=== PATIENT | female | born 1945 | race Caucasian/White ===

== ENCOUNTER 2024-01-18 09:06 | Outpatient (REF) | payer MEDICARE, SELFPAY ==
[2024-01-18 09:20] LABS: Basophils Absolute Auto 0.02 K/uL (0.00-0.30); Basophils Percent Auto 0.3 % (0.0-3.0); Eosinophils Absolute Auto 0.05 K/uL (0.00-0.50); Eosinophils Percent Auto 0.8 % (0.0-7.0); Hematocrit 42.8 % (33.0-51.0); Hemoglobin* 13.2 gm/dL (12.0-16.0); Immature Granulocytes Abs Auto 0.01 K/uL (0.00-0.30); Immature Granulocytes Pct Auto 0.2 %; Lymphocytes Absolute Auto 2.25 K/uL (0.90-2.90); Lymphocytes Percent Auto 37.9 % (20-44); Mean Corpuscular HGB Conc 31 gm/dL (32-36); Mean Corpuscular Hemoglobin 26 pg (26-34); Mean Corpuscular Volume 84 fL (80-100); Monocytes Percent Auto 8.8 % (0.0-11.0); Neutrophils Absolute Auto 3.08 K/uL (1.7-7.0); Platelet Count* 170 K/uL (140-440); Red Blood Count 5.09 m/uL (4.00-5.20); White Blood Count* 5.93 K/uL (4.50-11.00)
[2024-01-18 09:21] LABS: Slide Review Reflex No
[2024-01-18 09:32] LABS: Chloride* 101 mmol/L (96-114); Potassium* 4.8 mmol/L (3.6-5.1); Sodium* 137 mmol/L (135-149)
[2024-01-18 09:34] LABS: Cholesterol* 225 mg/dL (90-199)
[2024-01-18 09:35] LABS: Anion Gap 8 mEq/L (7-15); Blood Urea Nitrogen* 13 mg/dL (7-30); Calcium* 9.2 mg/dL (8.4-10.6); Carbon Dioxide* 28 mmol/L (20-32); Creatinine* 0.8 mg/dL (0.5-1.5); Estimated Glomerular Filt Rate 76 ml/min; Glucose* 204 mg/dL (60-115); Triglycerides* 160 mg/dL (40-149)
[2024-01-18 09:36] LABS: HDL Cholesterol* 54 mg/dL (>=50); LDL Cholesterol Calculated 139 mg/dL (<100)
[2024-01-18 09:54] LABS: Hemoglobin A1C* 8.8 % (0-5.6)
== END 2024-01-18 09:07 | disposition home or self-care (01) ==
LOC: NPINS 09:06
PROVIDERS: PCP Nurse Practitioner Gerontology; Visit Provider Nurse Practitioner Gerontology
DX: Z79.4 Long term (current) use of insulin (principal)
CPT/HCPCS: 80048; 80061; 83036; 85025

== ENCOUNTER 2024-02-08 20:28 | Outpatient (REF) | payer MEDICARE, SELFPAY ==
[2024-02-09 12:14] LABS: C.Difficile Negative (Negative); CDIFFEPI 027 PRESUMPTIVE NEGATIVE (Negative)
== END 2024-02-08 20:29 | disposition home or self-care (01) ==
LOC: NPINS 20:28
PROVIDERS: PCP Nurse Practitioner Gerontology; Visit Provider Nurse Practitioner Gerontology
DX: R19.7 Diarrhea, unspecified (principal)
CPT/HCPCS: 87493

== ENCOUNTER 2024-02-29 12:06 | Outpatient (CLI) | payer MEDICARE, SELFPAY | END 2024-02-29 12:07 | disposition home or self-care (01) | PROVIDERS: PCP Nurse Practitioner Gerontology; Visit Provider Family Medicine | DX: M54.16 Radiculopathy, lumbar region (principal); M51.369 Other intervertebral disc degeneration, lumbar region without mention of lumbar back pain or lower extremity pain | CPT/HCPCS: 62323; J0702; Q9966 ==

== ENCOUNTER 2024-04-04 14:46 | Outpatient (REF) | payer MEDICARE, SELFPAY ==
[2024-04-04 16:04] LABS: Basophils Percent Auto 0.2 % (0.0-3.0); Eosinophils Percent Auto 0.8 % (0.0-7.0); Hematocrit 39.5 % (33.0-51.0); Hemoglobin* 12.4 gm/dL (12.0-16.0); Immature Granulocytes Pct Auto 0.3 %; Lymphocytes Percent Auto 20.7 % (20-44); Mean Corpuscular HGB Conc 31 gm/dL (32-36); Mean Corpuscular Hemoglobin 26 pg (26-34); Mean Corpuscular Volume 84 fL (80-100); Monocytes Percent Auto 9.4 % (0.0-11.0); Neutrophils Percent Auto 68.6 % (42.0-72.0); Platelet Count* 183 K/uL (140-440); RDW Coefficient of Variation % 15.2 % (11.5-15.5); Red Blood Count 4.72 m/uL (4.00-5.20); White Blood Count* 11.04 K/uL (4.50-11.00)
[2024-04-04 16:05] LABS: Chloride* 102 mmol/L (96-114)
[2024-04-04 16:06] LABS: Potassium* 4.8 mmol/L (3.6-5.1); Sodium* 136 mmol/L (135-149)
[2024-04-04 16:08] LABS: Creatinine* 0.9 mg/dL (0.5-1.5); Estimated Glomerular Filt Rate 66 ml/min
[2024-04-04 16:09] LABS: Anion Gap 7 mEq/L (7-15); Blood Urea Nitrogen* 17 mg/dL (7-30); Calcium* 9.1 mg/dL (8.4-10.6); Carbon Dioxide* 27 mmol/L (20-32); Glucose* 239 mg/dL (60-115); Slide Review Reflex No
[2024-04-04 18:36] LABS: Hemoglobin A1C* 8.7 % (0-5.6)
== END 2024-04-04 14:47 | disposition home or self-care (01) ==
LOC: NPINS 14:46
PROVIDERS: PCP Nurse Practitioner Gerontology; Visit Provider Nurse Practitioner Gerontology
DX: R50.9 Fever, unspecified (principal); R53.83 Other fatigue
CPT/HCPCS: 80048; 83036; 84443; 85025

== ENCOUNTER 2024-06-04 14:49 | Emergency (ER) | payer MEDICARE, SELFPAY ==
--- OUTSIDE RECORDS SUMMARY | 2024-06-04 14:51 | XMS_ITS | Continuity of Care Document ---
Author Organization [facility] Address [address] [address] [place] [address] Phone Care Team Providers Care Public Information Director Name Role Phone Unavailable Unavailable Unavailable Allergies, [...] Diagnoses Date Provider Providers Copied on Encounter [facility], [address] [address], [place], [id number], [place] tel:[phone] [facility] Non-alcoholic Fatty LiverHep C No Coma-chronic 4 No Information Eugenia Jaocbs MD. tel:[phone] Offic/outpt E&m Estab Mod-hi 2 [facility], [address] [address], [place], [id number], [place] tel:[phone] [facility] Non-alcoholic Fatty LiverHep C No Coma-chronic 0- 4 No Information Referring Provider: Referral Self, USE FOR SELF REFERRALS. Offic/outpt E&m Estab Mod-hi 2 [facility], [address] [address], [place], [id number], [place] tel:[phone] [facility] Hep C (chief complaint) Hep C No Coma-chronic 0 2 No Information Referring Provider: Referral Self, USE FOR SELF REFERRALS. Offic/outpt E&m Estab Low-mod [facility], [address] [address], [facility] [place], [id number], [place] tel:[phone] [facility] Hepatitis C (chief complaint) Hep C No Coma-chronic 0 No Information Referring Provider: Ankit Sarmiento MD, [facility] [place], [address]. tel:[phone] [facility], [address] [address], [place], [id number], [place] tel:[phone] [facility] Colon Cancer ScreeningColo n Cancer Screening 0 You Snow. [address] [address], [address], [place], [place], [id number], [place]. tel:[phone] Referring Provider: Ankit Sarmiento MD, [address], [place], [address]. tel:[phone] Offic/outpt E&m Estab Mod-hi 2 [facility], [address] [address], [place], [place], [address], [place] tel:[phone] [facility] Hepatitis C (chief complaint) Hep C No Coma-chronic 0 No Information Referring Provider: Ankit Sarmiento MD, [address], [place], [address]. tel:[phone] Offic/outpt E&m Estab Low-mod [facility], [address] [address], [place], [place], [address], [place] tel:[phone] [facility] Hepatitis C (chief complaint) Fatty liver (chief complaint) liver biopsy follow up (chief complaint) Hep C No Coma-chronicN on-alcoholic Fatty Liver 9 No Information [facility], [address] [address], [place], [place], [address], [place] tel:[phone] [facility] No Information 9 No Information Offic/outpt E&m New Mod-hi 45 [facility], [address] [address], [place], [place], [address], [place] tel:[phone] [facility] Hepatitis C (chief complaint) Hep C No [...] Covered libertarian ID Authortraciea tipillo(s) Medicare NGS [id number] [place] Medical Assistance [id number] Social History Type Description Quantity Date Captured [...]
--- OUTSIDE RECORDS SUMMARY | 2024-06-04 14:51 | XMS_ITS | Clinical Summary ---
Author Organization [employer] [facility] Address [place], [place] [address] Care Team Providers Care Boiler Cleaner Name Role Phone [facility] Unavail able Unavailable Roscoe Hernandez MD Unavailable [phone] Bárbara Tabor RN Unavailable [phone] Yudith Cowart RN Unavailable [phone] Beth Carmona MD Primary Care Provider + Allergies Active Allergy Reactions Criticality Noted Date Comments Aripiprazole Other - Describe In Comment Field 06/16/2010 Pt states she feels fatigue and has weight gain. Codeine Nausea Only 12/14/2007 Lactose Other - Describe In Comment Field 09/15/2011 career developer told her she was allergic Menthol *Unknown 11/20/2010 Metformin Diarrhea 09/08/2005 Methohexital Other - Describe In Comment Field 09/08/2005 woke up during tooth extraction Olanzapine *Unknown 01/23/2014 Pt's daughter reports unk reaction to zyprexa- see notes from 01/18/14 for further detail Trazodone *Unknown 03/02/2018 Ziprasidone *Unknown 05/11/2014 Ziprasidone Hcl Diarrhea,Fever,Headache 010 WBC dropped per patient, fatigue Medications blood-glucose meterIndications: Type 2 diabetes mellitus without complication, without long-term current use of insulin (HC) Dispense meter, test strips, lancets covered by pt ins. 1 Device 11/27/19 18 Active medication order composer GNP [employer] 99 01/01/20 18 Active MAPAP 325 mg tablet TAKE TWO TABLETS BY MOUTH EVERY 4 HOURS NEEDED FOR PAIN OR FEVER NOT TO EXCEED 3GM/24HRS 11/26/19 18 Active BISAC-EVAC 10 mg suppository INSERT 1 SUPPOSITORY RECTALLY TWICE DAILY NEEDED FOR CONSTIPATION 99 11/26/19 18 Active VITAMIN D 1,000 unit tablet TAKE ONE TABLET BY MOUTH DAILY IN THE MORNING 11/26/19 18 Active calcium carbonate (TUMS) 200 mg calcium (500 mg) chewable tabletIndications :Heartburn 2 tabs Three times a day prn heartburn 30 tablet 01/12/20 18 Active gabapentin (NEURONTIN) 100 mg capsuleIndication s:neuropathic pain Take 2 capsules by mouth 2 times daily. 0 01/12/20 18 Active sennosides (SENNA) 8.6 mg tabletIndications :Constipation, unspecified constipation type 1-2 po daily prn constipation 30 tablet 01/12/20 18 Active lancets (EASY TOUCH LANCETS) 26 gauge miscIndications:T ype 2 diabetes mellitus with diabetic neuropathy, without long-term current use of insulin (HC) Dispense item covered by pt ins. E11.9 NIDDM type II -3 x per week 100 Each 05/31/19 19 Active aspirin (ECOTRIN) 81 mg enteric coated tabletIndications :Type 2 diabetes mellitus with diabetic neuropathy, without long-term current use of insulin (HC) Take 1 tablet by mouth once daily with a meal. 0 10/26/19 19 Active risperiDONE (RISPERDAL) 1 mg tabletIndications :Dementia with behavioral disturbance, unspecified dementia type TAKE 1 TAB BY MOUTH IN THE AFTERNOON FOR MOOD DISORDER 30 tablet 11/20/19 19 Active atorvastatin (LIPITOR) 20 mg tabletIndications :Hyperlipidemia, unspecified hyperlipidemia type Take 1 tablet by mouth once daily. 30 tablet 12/02/19 19 Active lancets (UNISTIK 3 COMFORT LANCET)Indication s:Type 2 diabetes mellitus with diabetic neuropathy, without long-term current use of insulin (HC) Test twice daily Dispense as covered per patient insurance 100 Each 01/26/20 19 Active insulin glargine (BASAGLAR KWIKPEN U-100 INSULIN) 100 unit/mL (3 mL) penIndications:Ty pe 2 diabetes mellitus with diabetic neuropathy, without long-term current use of insulin (HC) Inject 10 Units subcutaneous before bedtime. 30 mL 5 01/26/20 19 Active sertraline (ZOLOFT) 50 mg tabletIndications :Anxiety Take 1/2 tablet by mouth daily for 7 days, then 1 daily for mood. 30 tablet 11 02/25/20 19 Active NOVOFINE AUTOCOVER 30 gauge x 1/3 needleIndications :Type 2 diabetes mellitus with diabetic neuropathy, without long-term current use of insulin (HC) USE DIRECTED ONCE DAILY WITH INSULIN PEN 100 Each 3 03/17/20 Active ramelteon (ROZEREM) 8 mg tabletIndications :Insomnia, unspecified type TAKE 1 TAB BY MOUTH AT BEDTIME 90 tablet 1 04/01/20 Active Deep Sea Nasal [place] 0.65 % nasal solution 04/21/20 23 Active omeprazole (PRILOSEC) 20 mg Delayed-Release capsule Take 20 mg by mouth once daily before a meal. 08/16/19 24 Active Banophen 25 mg capsule 12/20/19 24 Active diclofenac topical (VOLTAREN) 1 % gel 01/24/20 24 Active nystatin powder (MYCOSTATIN) powder 10/05/19 24 Active Hemorrhoidal,PE-m in oil-joann, 0.25-14-74.9 % rectal ointment 08/26/19 24 Active chlorhexidine (PERIDEX) 0.12 % solution 02/21/20 24 Active tolnaftate 1% powder (TINACTIN) 1 % powder 02/14/20 24 Active HumaLOG KwikPen Insulin 100 unit/mL inpn pen 01/30/20 24 Active hydrocortisone 1 % cream 12/21/19 24 Active ibuprofen (ADVIL; MOTRIN) 400 mg tablet 02/14/20 24 Active meloxicam 15 mg tabletIndications :Lumbar facet arthropathy TAKE 1 TABLET BY MOUTH ONCE DAILY 30 Tablet 04/18/20 24 Active HYDROcodone-aceta minophen (5-325 mg/tablet)Indicat ions:Lumbar facet arthropathy Take 1 Tablet by mouth 3 times daily if needed for Pain. Max acetaminophen dose: 4000 mg in 24 hrs. 36 Tablet 05/11/19 25 Active HYDROcodone-aceta minophen (5-325 mg/tablet)Indicat ions:Lumbar facet arthropathy Take 1 Tablet by mouth 3 times daily if needed for Pain. Max acetaminophen dose: 4000 mg in 24 hrs. 24 Tablet 05/02/20 24 025 Discontin ued(Reord er (E-cancel not sent)) Active Problems Problem Noted Date Diagnosed Date Immunizations reviewed and up to date 07/28/2018 DNR (do not resuscitate) 07/28/2018 ACP (advance care planning) 07/28/2018 Dementia with behavioral disturbance 05/16/2015 Overview (05/16/2015): 05/16/2015 Pt referred from [facility] for behaviors including: refusing medications, verbally abusive towards staff. Bipolar I Affective Disorder (per history) with manic psychosis from description 09/15/2013 Chronic hepatitis C without mention of hepatic c rossana 09/08/2005 Overview (01/29/2012): Followed at [facility] by Dr. Browning. Disease stable. Recommend annual lfts. She declines treatment with interferon and ribavirin Osteoarthrosis-Multiple Sites 09/08/2005 Overview (05/09/2014): back and neck. Celebrex Insomnia, unspecified 09/08/2005 Other and unspecified hyperlipidemia 09/08/2005 Diabetes mellitus type 2 with neuropathy, contro lled 10/20/2002 Overview (05/16/2015): Since 2002. Lantus 8 units at bedtime. HEMOGLOBIN A1C MONITORING (POCT) Date Value 05/16/2015 6.2 % 10/07/2012 5.8 % Total Hgb 06/09/2011 6.1 % Cardiomegaly Overview (01/29/2012): Normal Lexiscan study with underlying artifact with left ventricular ejection fraction of 67%. July 2010 Resolved Problems Problem Noted Date Diagnosed Date Resolved Date Dementia with behavioral disturbance 12/04/2015 02/01/2018 Dementia with behavioral disturbance 09/16/2015 02/01/2018 Elevated TSH, borderline 05/16/2015 Overview (05/16/2015): TSH (uIU/mL) Date Value 05/16/2015 5.69* No treatment necessary. Hypercholesteremia 05/09/2014 9 Overview (05/09/2014): Atorvastatin. Benign essential HTN 04/17/2014 019 Overview (04/17/2014): On Lasix 20 mg daily. 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 07/28/2018 Encounter for long-term (cur rent) use of medications 09/15/2013 07/28/2018 Chronic low back pain 08/17/20132018 Other bipolar disorders 07/26/2013 05/0 01/2014 Lichen planus 10/10/2012 07/28/2018 Gastric ulcer 08/12/2012 07/28/2018 Overview (08/12/2012): EGD 08/2012 benign ulcers Vaginitis and vulvovaginitis, unspecified 06/22/2012 07/28/2018 Genital herpes, unspecified 04/02/2012 07/28/2018 Overview (05/16/2015): Acyclovir suppression Bipolar disorder in remission 07/30/2011 07/26/2013 Overview (07/30/2011): Last episode 2002 Pain medication agreement 07/27/2011 Overview (10/19/2012): Controlled substance contract signed 06/16/10, see scanned document ESPINOZA HARRIS RN 07/27/2011 4:07 AM Recommend no benzodiazepines. Eugenia Jacobs M.D. 09/21/2012 7:17 PM Unspecified asthma(493.90) 01/30/2010 0 07/28/2018 Unspecified venous (peripheral) insufficiency 01/21/20 07 07/28/2018 Tobacco use disorder 09/22/2006 008 Obesity, unspecified 09/09/2005 016 Overview (05/09/2014): [facility]. 05/09/2014 Body mass index is 39.39 kg/(m^2). Bipolar I disorder, most rec ent episode (or current) unspecified 09/08/2005 07/30/2011 Overview (09/08/2005): dr samara bal Other and unspecified alcoho l dependence, unspecified drinking behavior 09/08/2005 04/19/2019 Overview (09/08/2005): recovered since 1983 Proteinuria 09/08/2005 09/09/2005 Calculus of gallbladder with out mention of cholecystitis or obstruction 09/08/2005 07/28/2018 Lumbago 09/08/2005 01/29/2012 Overview (09/08/2005): referred physicians neck and back 06/14 Cardiomegaly 11/20/2007 Hypertension 05/16/2015 Hyperuricemia 07/28/2018 Migraine 07/28/2018 Overview (01/29/2012): Followed by Dr. Dumont. [facility] Vitamin D deficiency 019 Encounters Date Type Department Care Team Description 05/15/2024 11:00 AM HAND MOUNTER Procedure Only [facility] Susan [place] [address] Ashley Leigh L Ac Acupuncture 05/15/2024 Travel 05/08/2024 1:00 PM HAND MOUNTER Procedure Only [facility] [place] [address] Ashley Leigh L Ac Acupuncture 05/08/2024 Travel 05/08/2024 Telephone [facility] [place] [address] Gee Orosco MD Medication Management (PAIN MANAGEMENT) 05/04/2024 Telephone [facility] [place] [address] Gee Orosco MD Form (To be able to provide patient her medication) 05/02/2024 Telephone [facility] [place] [facility] [address] Gee Orosco MD Medication Management (PAIN MEDICATION ) 04/28/2024 Nurse Triage [facility] [address] [place] [address] Gee Orosco MD Back Pain 04/21/2024 Nurse Triage [facility] [address] [place] [address] Beth Carmona MD Ear Problem 04/18/2024 12:52 PM HAND MOUNTER - 04/18/2024 11:59 PM HAND MOUNTER Hospital Encounter [facility] [address] [place] [address] Jorge Forde DO Rein, Erik, PT 04/18/2024 Travel 04/14/2024 [facility] [address] [place] [address] Gee Orosco MD Refill Request (Meloxicam) 03/29/2024 11:17 AM HAND MOUNTER - 03/29/2024 11:59 PM HAND MOUNTER Hospital Encounter [address] [address] Jorge Forde DO Rein, Erik, PT Cervical radiculopathy; Facet arthritis of cervical region; DDD (degenerative disc disease), cervical; Cervical myofascial pain syndrome; Mid back pain 03/29/2024 Travel 03/24/2024 1:30 PM HAND MOUNTER Procedure Only [facility] [address] [place] [address] Ashley Leigh L Ac Acupuncture 03/24/2024 Travel 03/14/2024 1:30 PM HAND MOUNTER Procedure Only [facility] [address] [place] [address] Ashley Leigh L Ac Acupuncture (Initial) 03/14/2024 Travel 03/14/2024 Telephone [facility] [address] [place] [address] Gee Orosco MD Questions (Epidural) 03/07/2024 Telephone [facility] [address] [facility] [address] [place] [address] Jorge Forde, Questions (new referral ) from Last 3 Months Immunizations Name Administration Dates Next Due Inactivated Polio Vaccine 06/15/1991 Influenza A (H1N1), Inactiva maya (Age >=3 Years) 05/13/2009 Influenza, IIV3 (Age >=3 years) 02/11/20 13,04/02/2012,02/05/2011,2009,05/13/2009,04/04/2008 Influenza, IIV4 (=>6mos) MDV 03/02/2017 Pneumococcal Poly,23-Valent (Pneumovax) 04/08/2009,04/04/2008 Pneumococcal conj 13-Valent (Prevnar 13) 05/14/2017 Td, Preservative Free (age > = 7 Years) 09/22/2006 Tuberculin (PPD) 10/01/2009 Zoster (Zostavax-ZVL, live) 06/09/2011 Family History Medical History Relation Name Comments Alcohol/Drug Father Alcohol/Drug Mother Diabetes Mother Hypertension Mother Cancer Other Cancer-breast No Family History Relation Name Status Comments Brother 1 Alive Brother 2 Alive Father lung ca Maternal Grandfather Maternal Grandmother Mother Other Paternal Grandfather Paternal Grandmother ca Sister Alive Social History Tobacco Use Types Packs/Day Years Used Date Smoking Tobacco: Former Cigarettes 0.5 5 0 05/10/1979 - 05/10/1984 Smokeless Tobacco: Never Tobacco Cessation:Counseling Given: Not Answered Comments:quit in Alcohol Use Standard Drinks/Week Comments No 0 (1 standard drink = 0.6 oz pure alcohol) Dependence former drinker. quit in PHQ-2 Answer Date Recorded PHQ-2 Score 0 07/09/2018 Social Connections Answer Date Recorded Do you often feel lonely or isolated from those around you? 0 03/14/2024 Financial Resource Strain Answer Date R ecorded Difficulty of Paying Living Expenses 3 03/14/2024 Difficulty of Paying Living Expenses Not on file 03/14/2024 Food Insecurity Answer Date Recorded Do you worry your food will run out before you are able to buy more? 1 03/14/2024 Transportation Needs Answer Date Record ed Does lack of transportation keep you from medica l appointments? 1 03/14/2024 Does lack of transportation keep you from work, meetings or getting things that you need? 1 03/14/2024 Housing Stability Answer Date Recorded What is your housing situation today? 1 03/14/2024 Utilities Answer Date Recorded Do you have trouble paying f or utilities (for example, heat, electricity, water, phone)? 1 03/14/2024 Comments No Sex and Gender Information Value Date Recorded Sex Assigned at Not on file Legal Sex Female 5:38 AM HAND MOUNTER Gender Identity Not on file Sexual Orientation Not on file Obstetrics History Last Filed Vital Signs Vital Sign Reading Time Taken Comments Blood Pressure 120/60 02/28/2024 10:10 AM CDT Pulse 94 02/28/2024 10:10 AM CDT Temperature 37.6 C (99.6 F) 12/23/2023 10:25 AM CDT Respiratory Rate 20 12/17/2015 8:00 AM CDT Oxygen Saturation 92% 12/23/2023 10:25 AM CDT Inhaled Oxygen Concentration - - Weight 108.9 kg (240 lb) 02/28/2024 10:10 AM CDT Height 162.6 cm (5' 4.02) 02/28/2024 10:10 AM C DT Body Mass Index 41.18 02/28/2024 10:10 AM CDT Plan of Treatment Upcoming Encounters Date Type Department Care Team (Late st Contact Info) Description 06/08/2024 3:45 PM HAND MOUNTER Appointment [facility] [address] [place] [address] Cecilio Mancilla, PT [address] [place] [address] 06/14/2024 11:00 AM HAND MOUNTER Appointment [address] [address] Cecilio Mancilla, PT [address] [place] [address] 06/21/2024 2:40 PM HAND MOUNTER Office Visit [address] [place] [address] Gee Orosco MD [address] [place] [address] 06/22/2024 11:45 AM HAND MOUNTER Appointment [facility] [address] [place] [address] Cecilio Mancilla, PT [address] [facility] [place] [address] Health Maintenance Due Date Last Done Comments Tdap 07/07/1956 Zoster (shingles) series for age 50+ (2 of 3) 08/04/2011 06/09/2011 Medicare Wellness for age 65+ 09/15/2012 09/15/2011 Tetanus booster 09/22/2016 09/22/2006 Depression screening for age 12+ 01/14/2019 01/14/2018, 01/13/2018, 01/11/2018, Additional history exists Pneumococcal series for age 50+ (3 of 3 - PCV20 or PCV21) 05/14/2022 05/14/2017, 04/08/2009, 04/04/2008 RSV vaccine for adults or (1 - 1-dose 75+ series) 07/07/2022 Influenza for age 65+ 01/09/2024 03/02/2017 , 02/10/2013, 04/02/2012, Additional history exists BMI (ht and wt on same day) for age 18+ 02/27/2025 02/28/2024, 01/11/2018, 11/25/2015, Additional history exists Hepatitis C screening for ag e 18-79 Completed 09/09/2009, 12/06/2008 DEXA/DXA scan for age 65+ Completed 2012 ([facility]) COVID-19 vaccine series Completed 02/03/20, 03/02/2023, 03/13/2022, Additional history exists Procedures Procedure Name Priority Date/Time Associated Diagnosis Comments ACUPUNCTURE PLAN OF CARE Routine 05/16/2024 2:09 PM HAND MOUNTER Other low back pain ACUPUNCTURE PLAN OF CARE Routine 05/08/2024 12:53 PM HAND MOUNTER Cervical myofascial pain syndrome Chronic pain syndrome ACUPUNCTURE PLAN OF CARE Routine 03/24/2024 12:59 PM HAND MOUNTER Cervical myofascial pain syndrome Cervical facet joint syndrome Chronic pain syndrome HCV RNA QUANT Routine 09/09/2009 1:47 PM CDT Chronic hepatitis C without mention of hepatic coma from Last 3 Months or Most Recently Relevant to Health Maintenance Results * (ABNORMAL) HCV RNA RT-PCR,QNT [id number] (09/09/2009 1:47 PM CDT) HCV RNA RT-PCR Detected( A) [facility] NUMBER DETECTED 22,800,00 0 IU/mL [facility] SOURCE Blood [facility] Blood specimen (specimen) BLOOD SPECIMEN / Unknown 09/09/2009 1:47 PM CDT 09/09/2009 1:45 PM CDT Narrative [facility] - 09/16/2009 1:44 PM CDT Method: Benoit Taqman HCV Test us Ankit Sarmiento MD SEND OUTS Final Resu lt [facility] INTERNAL ZIP [address] [address] from Last 3 Months or Most Recently Relevant to Health Maintenance Insurance MEDICARE PART A HB ONLY MEDICARE PART B HB ONLY MEDICA DUAL [employer]IONS [facility] Advance Directives Documents on File Type Date Recorded 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 Expl 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 POLST 04/12/2018 2:43 PM 08/04/17 Healthcare Directive 03/17/2013 10:05 AM E [employer]UID[employer]ES, [facility], 03/17/13 * Full Code (Latest Code Status on File) Date Activated Date Inactivated Comments 12/04/2015 10:22 AM 12/17/2015 12:12 PM Question Answer Comments Code Status Discussion: Per Existing Order * Full Code Date Activated Date Inactivated Comments 09/16/2015 2:45 PM 09/26/2015 12:37 PM Question Answer Comments Code Status Discussion: Per Existing Order * Full Code Date Activated Date Inactivated Comments 05/16/2015 2:37 PM 05/24/2015 12:00 PM Question Answer Comments Code Status Discussion: Per Existing Order * Full Code Date Activated Date Inactivated Comments 04/16/2014 1:58 PM 05/11/2014 1:17 PM * Full Code Date Activated Date Inactivated Comments 01/30/2010 9:07 PM 02/01/2010 1:40 PM Care Teams Boiler Cleaner Relationship Specialty Start Date End Date Beth Carmona MD [address] [address] PCP - General Family Practice 12/23/23 [facility] 04/[facility]12 Roscoe Hernandez MD [address] [facility] [address] [place], [place] [id number] Provider Family Practice 07/09/19 Bárbara Tabor RN [address] [facility] [address] [place], [place] [id number] Abe Teacher - [facility] Registered Nurse 02/07/21 Yudith Cowart, KANNAN [address] [facility] [address] [place], [place] [id number] Abe Teacher - [facility] Registered Nurse 02/07/21
[2024-06-04 15:09] VITALS: BP 168/76; PULSE 68; RESP 22; TEMP 36.3; O2SAT 99; BMI 40.5
--- NOTE | 2024-06-04 15:09 | CRLHL7_ITS ---
For Patients: As a result of the Century Cures Act, medical imaging exams and procedure reports are released immediately into your electronic medical record. You may view this report before your referring provider. If you have questions, please contact your health care provider. INDICATION: Cough right-sided rib pain TECHNIQUE: Two view chest. FINDINGS: The lungs are clear. The heart, mediastinum and pulmonary vessels are of normal size. There is no evidence of pleural disease. IMPRESSION: Negative chest. Dictated by Geena Lowery MD @ 06/04/2024 3:50:18 PM (Electronically Signed)
--- NOTE | 2024-06-04 15:31 | ED_ITS ---
HPI - General Adult General Chief complaint: Neuro Symptoms/Altered Deficit Stated complaint: possible stroke, left face side paralysis Time Seen by Provider: 06/04/24 15:08 Source: patient Mode of arrival: ambulatory Limitations: no limitations History of Present Illness HPI narrative: 78-year-old female coming in today with several concerns. Patient has noted paralysis of the left side of her face going on for 4 days, has gotten slowly worse over the last 4 days. Per the nursing staff at [facility] she was encouraged to come in for a possible stroke which she did not want to do that until today. She denies weakness of her extremities. She denies slurred speech or difficulty finding words. She denies any new changes in the way she walks or difficulty walking. She does not have a headache. She denies blurry vision, double vision a or ringing in her ears. Her 2nd issue is an upper respiratory infection and cough for at least 20 days. She says that her cough is productive, she denies fevers or chills. Cough wakes her up at night. Past medical history is significant for type 2 diabetes, insulin dependent, hypertension, bipolar disorder, hepatitis-C, hyperlipidemia, poly osteoarthritis, insomnia, cardiomegaly, vitamin-D deficiency, cognitive impairment, morbid obesity, spondylosis of the cervical spine. Related Data Home Medications ?Medication ?Instructions ?Recorded ?Confirmed acetaminophen 500 mg tablet mg 06/04/24 albuterol sulfate 90 mcg/actuation inhalation 06/04/24 aerosol inhaler aspirin 81 mg chewable tablet DAILY 06/04/24 atorvastatin 40 mg tablet mg DAILY 06/04/24 dulaglutide 0.75 mg/0.5 mL mg subcut 06/04/24 subcutaneous pen injector (Trulicity) gabapentin 100 mg capsule mg 06/04/24 guaifenesin 600 mg tablet, mg PO 06/04/24 extended release 12 hr (Mucus Relief ER) insulin lispro 100 unit/mL subcut 06/04/24 subcutaneous pen (Humalog KwikPen (U-100) Insulin) meloxicam 15 mg tablet mg DAILY 06/04/24 metformin 750 mg tablet,extended mg PO DAILY 06/04/24 release 24 hr omeprazole 20 mg capsule,delayed mg DAILY 06/04/24 release oxycodone 5 mg tablet mg 06/04/24 peg 400-propylene glycol 0.4 %-0.3 drp ophthalmic (eye) 06/04/24 % eye gel drops (Systane Gel) Previous Rx's ?Medication ?Instructions ?Recorded prednisone 20 mg tablet 60 mg (3 x 20 mg) PO DAILY 6 days 06/04/24 #18 tabs valacyclovir 1 gram tablet 1,000 mg PO TID 7 days #21 tabs 06/04/24 Allergies Allergy/AdvReac Type Severity Reaction Status Date / Time No Known Drug Allergies Allergy Verified 06/04/24 15:09 Review of Systems Status of ROS: Reports: 10 or more systems reviewed and unremarkable except as noted in History and below Exam Narrative: Exam Narrative: Obese, well-developed patient in no acute distress. Alert and oriented x3. Answers questions appropriately. Mood and affect are appropriate. Thoughts are goal oriented and rational. No tangential or magical thinking noted. Patient speaks in full sentences without needing to catch her breath. HEENT: Normocephalic atraumatic. Pupils are equally round reactive to light. Extraocular muscles are intact. Conjunctivae are moist without any icterus noted. Moist mucous membranes. Posterior pharynx is normal. Patient has obvious facial droop of the left side. She has no movement of the forehead. She cannot close her eye completely. Loss of nasal labial fold. TMs are clear bilaterally. Normal external ear canals. No vesicles noted. Patient has no pain at the cervical spine. Has full range of motion without stiffness. Cardiovascular: Heart is regular rate and rhythm S1 and S2 are present without any murmurs. Lungs: Significantly Decreased to auscultation bilaterally. Abdomen: Soft and nontender nondistended with normal bowel sounds. Protuberant. Extremities: Bilateral lower extremities are without edema. Skin: Well perfused without any obvious rashes. Const: Vital Signs, click to edit/add: Vital Signs - 24 hr 06/04/24 15:09 Temperature 97.3 F L Pulse Rate [Pulse Oximeter] 68 Respiratory Rate 22 Blood Pressure [Ri ght Upper Arm] 168/76 H Pulse Oximetry 99 Oxygen Delivery Me thod Room Air Course Course ED Course: Patient presenting with very classic symptoms of Bazzi's palsy. House Brackmann V. based on physical examination. URI with cough also present. CBC was unremarkable. Normal chemistries. Glucose elevated at 315. Lactate slightly elevated at 2.2. Normal LFTs. Normal magnesium. Normal CRP. Normal BNP. UA with 2+ glucose otherwise unremarkable. Triple swab negative. Normal TSH. Chest x-ray, read by me, does not show any acute pathology. Lyme test pending at this time. Vital Signs Vital signs: Initial Vital Signs Temperature 97.3 F L 06/04/24 15:09 Temperature Source Temporal Artery Scan 06/04/24 15:09 Pulse Rate 68 06/04/24 15:09 Respiratory Rate 22 06/04/24 15:09 Blood Pressure 168/76 H 06/04/24 15:09 Blood Pressure Mean 106 H 06/04/24 15:09 Pulse Oximetry 99 06/04/24 15:09 Oxygen Delivery Method Room Air 06/04/24 15:09 Vital Signs Temperature 97.3 F L 06/04/24 15:09 Pulse Rate 68 06/04/24 15:09 Respiratory Rate 22 06/04/24 15:09 Blood Pressure 168/76 H 06/04/24 15:09 Pulse Oximetry 99 06/04/24 15:09 Oxygen Delivery Method Room Air 06/04/24 15:09 Temperature 97.3 F L 06/04/24 15:09 Pulse Rate 68 06/04/24 15:09 Respiratory Rate 22 06/04/24 15:09 Blood Pressure 168/76 H 06/04/24 15:09 Pulse Oximetry 99 06/04/24 15:09 Oxygen Delivery Method Room Air 06/04/24 15:09 Medications Administered Medications: Discontinued Medications Generic Name Dose Route Start Last Admin Trade Name Freq PRN Reason Stop Dose Admin Sodium Chloride 500 mls @ 500 mls/hr 06/04/24 15:50 06/04/24 17:21 0.9 % Sodium Chloride 500 Ml IV 06/04/24 16:49 Infused .Q1H ONE Infusion Prednisone 60 mg 06/04/24 17:04 06/04/24 17:35 Prednisone 20 Mg Tablet PO 06/04/24 17:05 60 mg ONCE ONE Administration Medical Decision Making MDM Narrative Medical decision making narrative: 78-year-old female with Bazzi's palsy - we will start the patient on steroids which will require careful monitoring of her blood glucose. Will also put her on valacyclovir. Lab Data Labs: Lab Results 06/04/24 06/04/24 Range/Units 15:30 16:18 WBC 7.79 (4.50-11.00) K/uL RBC 4.86 (4.00-5.20) m/uL Hgb 12.5 (12.0-16.0) gm/dL Hct 39.8 (33.0-51.0) % MCV 82 (80-100) fL MCH 26 (26-34) pg MCHC 31 L (32-36) gm/dL RDW Coeff of Gamal 15.7 H (11.5-15.5) % Plt Count 209 (140-440) K/uL Neut % (Auto) 66.5 (42.0-72.0) % Lymph % (Auto) 21.2 (20-44) % [place] % (Auto) 10.3 (0.0-11.0) % Eos % (Auto) 1.0 (0.0-7.0) % Baso % (Auto) 0.1 (0.0-3.0) % Neut # (Auto) 5.18 (1.7-7.0) K/uL Lymph # (Auto) 1.65 (0.90-2.90) K/uL [place] # (Auto) 0.80 (0.00-0.90) K/UL Eos # (Auto) 0.08 (0.00-0.50) K/uL Baso # (Auto) 0.01 (0.00-0.30) K/uL Abs Immat Gran (auto) 0.07 (0.00-0.30) K/uL Imm/Tot Granulo (auto) 0.9 % Sodium 135 (135-149) mmol/L Potassium 5.0 (3.6-5.1) mmol/L Chloride 101 (96-114) mmol/L Carbon Dioxide 24 (20-32) mmol/L Anion Gap 10 (7-15) mEq/L BUN 18 (7-30) mg/dL Creatinine 0.8 (0.5-1.5) mg/dL Estimated Creat Clear 41.33 Estimated GFR 76 ml/min Glucose 315 H (60-115) mg/dL Lactate 2.2 H (0.5-1.9) mmol/L Calcium 8.9 (8.4-10.6) mg/dL Magnesium 1.7 (1.5-2.6) mg/dL Total Bilirubin 1.1 (0.1-1.5) mg/dL Direct Bilirubin 0.4 (0.0-0.5) mg/dL AST 24 (12-35) U/L ALT 20 (4-35) U/L Alkaline Phosphatase 80 (40-150) U/L C-Reactive Protein < 0.5 L (0.5-1.0) mg/dL NT-Pro-B Natriuret Pep 60 pg/mL Total Protein 7.4 (6.0-8.3) g/dL Albumin 4.3 (3.3-5.0) g/dL Lipase 262 (23-300) U/L TSH 1.900 (0.270-4.20) uIU/mL Urine Color Yellow (Yellow) Urine Appearance Clear (Clear) Urine pH 5.5 (5.0-8.5) Ur Specific [place] 1.025 (1.000-1.030) Urine Protein Negative (Negative) Urine Glucose (UA) 2+ A (Negative) Urine Ketones Negative (Negative) Urine Blood Negative (Negative) Urine Nitrite Negative (Negative) Urine Bilirubin Negative (Negative) Urine Urobilinogen 0.2 (0.2-1.0) Ur Leukocyte Esterase Negative (Negative) Urine RBC 0-2 (0-2) Urine WBC 2-5 (0-5) Ur Squamous Epith Cells Many A (None-Few) Urine Bacteria Few A (None) SARS-CoV-2 (PCR) Negative SARS-CoV-2 (Negative) Monoscreen Negative (Negative) Influenza Type A (PCR) Negative PCR FLU A (Negative) Influenza Type B (PCR) Negative PCR FLU B (Negative) RSV (PCR) Negative PCR RSV (Negative) Imaging Data Chest x-ray: Attestation: I have reviewed the pertinent imaging results. Radiologist's impression: Cough right-sided rib pain TECHNIQUE: Two view chest. FINDINGS: The lungs are clear. The heart, mediastinum and pulmonary vessels are of normal size. There is no evidence of pleural disease. IMPRESSION: Negative chest. Discharge Plan Discharge Clinical Impression: Bazzi's palsy, Cough Patient Disposition: Home, Self-Care Condition: Stable Instructions: Bazzi Palsy (ED) Additional Instructions: You will need to take a steroid daily for 7 days. First dose given in the ER today. You also need to take it antiviral medication which has been prescribed to you, can start in the morning. You will need to monitor your blood glucose very closely over the next week as the steroid can affect your sugars and cause them to be higher than normal. You need to purchase [id number] artificial tears to use 4-5 times per day during the day and tape your eye shut at night before you go to bed. Follow-up with your primary care provider in approximately 5-7 days. As far as your cough, I am concerned that you are developing asthma or COPD. You should follow-up with your primary care provider to discuss this and see if inhaler would be appropriate. Prescriptions: New prednisone 20 mg tablet 60 mg PO DAILY 6 Days Qty: 18 0RF valacyclovir 1 gram tablet 1,000 mg PO TID 7 Days Qty: 21 0RF No Action atorvastatin 40 mg tablet DAILY meloxicam 15 mg tablet DAILY acetaminophen 500 mg tablet Patient Comments: [NO ORIGINAL SIG] omeprazole 20 mg capsule,delayed release(DR/EC) DAILY aspirin 81 mg tablet,chewable DAILY gabapentin 100 mg capsule Patient Comments: [NO ORIGINAL SIG] albuterol sulfate 90 mcg/actuation HFA aerosol inhaler INHALATION Patient Comments: [NO ORIGINAL SIG] oxycodone 5 mg tablet insulin lispro [Humalog KwikPen Insulin] 100 unit/mL insulin pen subcut metformin 750 mg tablet extended release 24 hr PO DAILY Systane Gel 0.4-0.3 % drops,gel ophthalmic (eye) guaifenesin [Mucus Relief ER] 600 mg tablet extended release 12hr PO Patient Comments: [NO ORIGINAL SIG] Trulicity 0.75 mg/0.5 mL pen injector subcut Follow Up/Referrals: Ellen Us DNP, RN [Primary Care Provider] - Stand Alone Forms: [employer] Info Instructions
--- OUTSIDE RECORDS SUMMARY | 2024-06-04 15:41 | XMS_ITS | Continuity of Care Document ---
Author Organization [facility] Address [address] [address] [place] [address] Phone Care Team Providers Care Junior Data Analyst Name Role Phone Unavailable Unavailable Unavailable Allergies, [...] [facility], [address] [address], [place], [id number], [place] tel:[phone] [facility] Non-alcoholic Fatty LiverHep C No Coma-chronic 4 No Information Eugenia Jacobs MD. tel:[phone] Offic/outpt E&m Estab Mod-hi 2 [facility], [address] [address], [place], [id number], [place] tel:[phone] [facility] Non-alcoholic Fatty LiverHep C No Coma-chronic 0- 4 No Information Referring Provider: Referral Self, USE FOR SELF REFERRALS. Offic/outpt E&m Estab Mod-hi 2 [facility], [address] [address], [place], [id number], [place] tel:[phone] [facility] Hep C (chief complaint) Hep C No Coma-chronic 0 2 No Information Referring Provider: Referral Self, USE FOR SELF REFERRALS. Offic/outpt E&m Estab Low-mod [facility], [address] [address], [facility] [place], [id number], [place] tel:[phone] [facility] Hepatitis C (chief complaint) Hep C No Coma-chronic 0 No Information Referring Provider: Ankit Sarmiento MD, [facility] [place], [address]. tel:[phone] [facility], [address] [address], [place], [id number], [place] tel:[phone] [facility] Colon Cancer ScreeningColo n Cancer Screening 0 You Snow. [address] [facility], [place], [place], [id number], [place]. tel:[phone] Referring Provider: Ankit Sarmiento MD, [address], [place], [address]. tel:[phone] Offic/outpt E&m Estab Mod-hi 2 [facility], [address] [address], [place], [place], [id number], [place] tel:[phone] [facility] Hepatitis C (chief complaint) Hep C No Coma-chronic 0 No Information Referring Provider: Ankit Sarmiento MD, [address], [place], [address]. tel:[phone] Offic/outpt E&m Estab Low-mod [facility], [address] [address], [place], [place], [id number], [place] tel:[phone] [facility] Hepatitis C (chief complaint) Fatty liver (chief complaint) liver biopsy follow up (chief complaint) Hep C No Coma-chronicN on-alcoholic Fatty Liver 9 No Information [facility], [address] [address], [place], [place], [id number], [place] tel:[phone] [facility] No Information 9 No Information Offic/outpt E&m New Mod-hi 45 [facility], [address] [address], [place], [place], [id number], [place] tel:[phone] [facility] Hepatitis C (chief complaint) Hep C No [...] ulceration Payers Payer name Insurance type Covered green party ID Authortraciea tipillo(s) Medicare NGS [id number] [place] Medical Assistance [id number] Social History Type Description Quantity Date Captured [...]
[2024-06-04 15:42] LABS: Lactate* 2.2 mmol/L (0.5-1.9)
--- OUTSIDE RECORDS SUMMARY | 2024-06-04 15:42 | XMS_ITS | Clinical Summary ---
Author Organization [facility] Address [place], [place] [address] Care Team Providers Care Urban Gardening Specialist Name Role Phone [place] [facility] Unavail able Unavailable Roscoe Hernandez MD Unavailable [phone] Bárbara Tabor RN Unavailable [phone] Yudith Cowart RN Unavailable [phone] Beth Carmona MD Primary Care Provider + Allergies Active Allergy Reactions Criticality Noted Date Comments Aripiprazole Other - Describe In Comment Field 06/16/2010 Pt states she feels fatigue and has weight gain. Codeine Nausea Only 12/14/2007 Lactose Other - Describe In Comment Field 09/15/2011 patient care representative told her she was allergic Menthol *Unknown [...] tablet 1 04/01/20 Active Deep Sea Nasal [place] 0.65 % nasal solution 04/21/20 23 Active [...] 05/16/2015 Overview (05/16/2015): 05/16/2015 Pt referred from [facility] for behaviors including: refusing medications, verbally abusive towards staff. Bipolar I Affective Disorder (per history) with manic psychosis from description 09/15/2013 Chronic hepatitis C without mention of hepatic c rossana 09/08/2005 Overview (01/29/2012): Followed at [facility] by Dr. Browning. Disease stable. Recommend annual [...] 07/28/2018 Overview (01/29/2012): Followed by Dr. Dumont. [facility] Vitamin D deficiency 019 Encounters Date Type Department Care Team Description 05/15/2024 11:00 AM [employer] Procedure Only [facility] [place] [address] Ashley Leigh L Ac Acupuncture 05/15/2024 Travel 05/08/2024 1:00 PM [employer] Procedure Only [facility] Susan [facility] [place] [address] Ashley Leigh L Ac Acupuncture 05/08/2024 Travel 05/08/2024 Telephone [facility] [place] [address] Gee Orosco MD Medication Management (PAIN MANAGEMENT) 05/04/2024 Telephone [facility] [place] [address] Gee Orosco MD Form (To be able to provide patient her medication) 05/02/2024 Telephone [facility] Susan [facility] [place] [address] Gee Orosco MD Medication Management (PAIN MEDICATION ) 04/28/2024 Nurse Triage [facility] [address] [facility] [address] Gee Orosco MD Back Pain 04/21/2024 Nurse Triage [facility] [address] [place] [address] Beth Carmona MD Ear Problem 04/18/2024 12:52 PM [employer] - 04/18/2024 11:59 PM [employer] Hospital Encounter [facility] [address] [place] [address] Jorge Forde DO Rein, Erik, PT 04/18/2024 Travel 04/14/[address] [facility] [address] [place] [address] Gee Orosco MD Refill Request (Meloxicam) 03/29/2024 11:17 AM [employer] - 03/29/2024 11:59 PM [employer] Hospital Encounter [address] [address] Jorge Forde DO Rein, Erik, PT Cervical radiculopathy; Facet arthritis of cervical region; DDD (degenerative disc disease), cervical; Cervical myofascial pain syndrome; Mid back pain 03/29/2024 Travel 03/24/2024 1:30 PM [employer] Procedure Only [facility] [address] [place] [address] Ashley Leigh L Ac Acupuncture 03/24/2024 Travel 03/14/2024 1:30 PM [employer] Procedure Only [facility] [address] [place] [address] Ashley Leigh L Ac Acupuncture (Initial) 03/14/2024 Travel 03/14/2024 Telephone [facility] [address] [place] [address] Gee Orosco MD Questions (Epidural) 03/07/[address] [facility] [address] [facility] [address] [place] [address] Jorge Forde, Questions (new referral ) from [...] on file Legal Sex Female 5:38 AM [employer] Gender Identity Not on file Sexual Orientation [...] st Contact Info) Description 06/08/2024 3:45 PM [employer] Appointment [facility] [address] [place] [address] Cecilio Mancilla, PT [address] [place] [address] 06/14/2024 11:00 AM [employer] Appointment [address] [address] Cecilio Mancilla, PT [address] [place] [address] 06/21/2024 2:40 PM [employer] Office Visit [address] [place] [address] Gee Orosco MD [address] [facility] [address] 06/22/2024 11:45 AM [employer] Appointment [facility] [address] [place] [address] Cecilio Mancilla, PT [address] [facility] [place] [address] Health Maintenance Due Date Last Done Comments [...] age 65+ Com[facility] 2012 [facility] COVID-19 vaccine series Completed 02/03/20, 03/02/2023, 03/13/2022, Additional history exists Procedures Procedure Name Priority Date/Time Associated Diagnosis Comments ACUPUNCTURE PLAN OF CARE Routine 05/16/2024 2:09 PM [employer] Other low back pain ACUPUNCTURE PLAN OF CARE Routine 05/08/2024 12:53 PM [employer] Cervical myofascial pain syndrome Chronic pain syndrome ACUPUNCTURE PLAN OF CARE Routine 03/24/2024 12:59 PM [employer] Cervical myofascial pain syndrome Cervical facet joint syndrome Chronic pain syndrome HCV RNA QUANT Routine 09/09/2009 1:47 PM CDT Chronic hepatitis C without mention of hepatic coma from Last 3 Months or Most Recently Relevant to Health Maintenance Results * (ABNORMAL) HCV RNA RT-PCR,QNT [id number] (09/09/2009 1:47 PM CDT) HCV RNA RT-PCR Detected( A) [facility] NUMBER DETECTED 22,800,00 0 IU/mL [facility] SOURCE Blood [facility] Blood specimen (specimen) BLOOD SPECIMEN / Unknown 09/09/2009 1:47 PM CDT 09/09/2009 1:45 PM CDT Narrative [facility] - 09/16/2009 1:44 PM CDT Method: Benoit Taqman HCV Test us Ankit Sarmiento MD SEND OUTS Final Resu lt [facility] INTERNAL ZIP [address] [address] from Last 3 Months or Most Recently Relevant to Health Maintenance Insurance MEDICARE PART A HB ONLY MEDICARE PART B HB ONLY MEDICA [employer] [facility] Advance Directives Documents on File Type Date Recorded Patient Plaque Maker Expl anation POLST 04/12/2018 2:43 PM 08/04/17 Healthcare Directive 03/17/2013 10:05 AM E [employer], [facility], 03/17/13 * Full Code (Latest Code Status [...] 9:07 PM 02/01/2010 1:40 PM Care Teams Urban Gardening Specialist Relationship Specialty Start Date End Date Beth Carmona MD [address] [address] PCP - General Family Practice 12/23/23 [facility] 04/02/12 Roscoe Hernandez MD [address] [facility] [address] [place], [place] [id number] Provider Family Practice 07/09/19 Bárbara Tabor RN [address] [facility] [address] [place], [place] [id number] Moisture Machine Tender - [facility] Registered Nurse 02/07/21 Yudith Cowart, KANNAN [address] [facility] [address] [place], [place] [phone] Moisture Machine Tender - [facility] Registered Nurse 02/07/21
[2024-06-04 15:44] LABS: Basophils Absolute Auto 0.01 K/uL (0.00-0.30); Basophils Percent Auto 0.1 % (0.0-3.0); Eosinophils Absolute Auto 0.08 K/uL (0.00-0.50); Hematocrit 39.8 % (33.0-51.0); Hemoglobin* 12.5 gm/dL (12.0-16.0); Immature Granulocytes Abs Auto 0.07 K/uL (0.00-0.30); Immature Granulocytes Pct Auto 0.9 %; Lymphocytes Absolute Auto 1.65 K/uL (0.90-2.90); Lymphocytes Percent Auto 21.2 % (20-44); Mean Corpuscular HGB Conc 31 gm/dL (32-36); Mean Corpuscular Hemoglobin 26 pg (26-34); Mean Corpuscular Volume 82 fL (80-100); Monocytes Percent Auto 10.3 % (0.0-11.0); Neutrophils Absolute Auto 5.18 K/uL (1.7-7.0); Neutrophils Percent Auto 66.5 % (42.0-72.0); Platelet Count* 209 K/uL (140-440); RDW Coefficient of Variation % 15.7 % (11.5-15.5); Red Blood Count 4.86 m/uL (4.00-5.20); White Blood Count* 7.79 K/uL (4.50-11.00)
[2024-06-04 15:45] LABS: Mono Screen* Negative (Negative)
[2024-06-04 15:47] LABS: Slide Review Reflex No
[2024-06-04 16:00] LABS: Albumin* 4.3 g/dL (3.3-5.0); Chloride* 101 mmol/L (96-114); Sodium* 135 mmol/L (135-149)
[2024-06-04 16:03] LABS: Anion Gap 10 mEq/L (7-15); Carbon Dioxide* 24 mmol/L (20-32); Creatinine* 0.8 mg/dL (0.5-1.5); Est. Creatinine Clearance* 41.33; Estimated Glomerular Filt Rate 76 ml/min
[2024-06-04 16:04] LABS: Alanine Aminotransferase* 20 U/L (4-35); Alkaline Phosphatase* 80 U/L (40-150); Aspartate Amino Transferase* 24 U/L (12-35); Bilirubin Direct* 0.4 mg/dL (0.0-0.5); Bilirubin Total* 1.1 mg/dL (0.1-1.5); Blood Urea Nitrogen* 18 mg/dL (7-30); Calcium* 8.9 mg/dL (8.4-10.6); Glucose* 315 mg/dL (60-115); Lipase* 262 U/L (23-300); Magnesium* 1.7 mg/dL (1.5-2.6); Total Protein* 7.4 g/dL (6.0-8.3)
[2024-06-04 16:08] LABS: C Reactive Protein* < 0.5 mg/dL (0.5-1.0)
[2024-06-04 16:17] LABS: PCR FLU A Negative PCR FLU A (Negative); PCR FLU B Negative PCR FLU B (Negative); PCR RSV Negative PCR RSV (Negative); SARS PCR* Negative SARS-CoV-2 (Negative)
[2024-06-04 16:18] LABS: NT Pro B Type NatriureticPept* 60 pg/mL
[2024-06-04 16:28] LABS: Appearance Urine Clear (Clear); Bilirubin Urine Negative (Negative); Blood Urine Negative (Negative); Color Urine Yellow (Yellow); Glucose Urine 2+ (Negative); Ketones Urine Negative (Negative); Leukocyte Esterase Urine Negative (Negative); Nitrite Urine Negative (Negative); Protein Urine Negative (Negative); Specific Gravity Urine 1.025 (1.000-1.030); Urobilinogen Urine 0.2 (0.2-1.0); pH Urine 5.5 (5.0-8.5)
[2024-06-04] MEDS: 0.9 % SODIUM CHLORIDE 500 ML 500 ML IV (16:32)
[2024-06-04 16:39] LABS: Bacteria Urine Few; RBC Urine 0-2 (0-2); Squamous Epithelial Cell Urine Many (None-Few)
[2024-06-04] MEDS: predniSONE 20 MG TABLET 60 MG PO (17:35)
[2024-06-06 16:26] LABS: Lyme ELISA Reflex 0.33 IV (<=0.90)
== END 2024-06-04 17:40 | disposition home or self-care (01) ==
PROVIDERS: Emergency Provider Family Medicine; PCP Nurse Practitioner Gerontology
DX: G51.0 Bell's palsy (principal); R05.9 Cough, unspecified
CPT/HCPCS: 36415; 71046; 80048; 80076; 81001; 83605; 83690; 83735; 83880; 84443; 85025; 86140; 86308; 86618; 87086; 87631; 96360; 99284; J7030; J7512

== ENCOUNTER 2024-08-15 11:25 | Outpatient (REF) | payer MEDICARE, SELFPAY ==
[2024-08-15 13:28] LABS: Chloride* 103 mmol/L (96-114); Potassium* 4.6 mmol/L (3.6-5.1); Sodium* 137 mmol/L (135-149)
[2024-08-15 13:30] LABS: Hemoglobin A1C* 9.1 % (0-5.6)
[2024-08-15 13:31] LABS: Anion Gap 6 mEq/L (7-15); Blood Urea Nitrogen* 13 mg/dL (7-30); Calcium* 8.9 mg/dL (8.4-10.6); Carbon Dioxide* 28 mmol/L (20-32); Creatinine* 0.7 mg/dL (0.5-1.5); Estimated Glomerular Filt Rate 89 ml/min; Glucose* 109 mg/dL (60-115)
== END 2024-08-15 11:26 | disposition home or self-care (01) ==
LOC: NPINS 11:25
PROVIDERS: PCP Nurse Practitioner Gerontology; Visit Provider Nurse Practitioner Gerontology
DX: E11.9 Type 2 diabetes mellitus without complications (principal)
CPT/HCPCS: 80048; 83036

== ENCOUNTER 2025-01-01 20:59 | Emergency (ER) | payer MEDICARE, SELFPAY ==
--- OUTSIDE RECORDS SUMMARY | 2025-01-01 21:01 | XMS_ITS ---
Author Name Auto Generated, Auto Generated Organization [employer] Functional Status No Results Mental Status No Results Allergies and Intolerances No Known Allergies Problems Active Concerns * Health care maintenance* Code: [id number] * Start Date: WedDec 20 09:29:00 EDT 2024 * End Date: * Text: * Infection of nail bed of finger of right hand* Code: [id number] * Start Date: WedAug 06 19:22:00 EDT 2024 * End Date: * Text: * Bronchitis* Code: [id number] * Start Date: WedOct 08 23:25:00 EDT 2024 * End Date: * Text: Reason for Referral
--- OUTSIDE RECORDS SUMMARY | 2025-01-01 21:03 | XMS_ITS | Clinical Summary ---
Author Organization [facility] Address [address] [place] [id number] Care Team Providers Care Charge Attendant Name Role Phone Thayer, [facility] Unavail able Unavailable Roscoe Hernandez MD Unavailable [phone] Bárbara Tabor RN Unavailable [phone] Yudith Cowart RN Unavailable [phone] Beth Carmona MD Primary Care Provider + Allergies Active Allergy Reactions Criticality Noted Date Comments Aripiprazole Other - Describe In Comment Field 06/16/2010 Pt states she feels fatigue and has weight gain. Codeine Nausea Only 12/14/2007 Lactose Other - Describe In Comment Field 09/15/2011 career development counselor told her she was allergic Menthol *Unknown 11/20/2010 Metformin Diarrhea 09/08/2005 Methohexital Other - Describe In Comment Field 09/08/2005 woke up during tooth extraction Olanzapine *Unknown 01/23/2014 Pt's daughter reports unk reaction to zyprexa- see notes from 01/18/14 for further detail Oxycodone GI Upset 09/27/2024 Trazodone *Unknown 03/02/2018 Ziprasidone *Unknown 05/11/2014 Ziprasidone Hcl Diarrhea,Fever,Headache 010 WBC dropped per patient, fatigue Medications blood-glucose meterIndications:T ype 2 diabetes mellitus without complication, without long-term current use of insulin (HC) Dispense meter, test strips, lancets covered by pt ins. 1 Device 11/27/19 Active medication order composer GNP [employer] 99 01/01/20 18 Active MAPAP 325 mg tablet TAKE TWO TABLETS BY MOUTH EVERY 4 HOURS NEEDED FOR PAIN OR FEVER NOT TO EXCEED 3GM/24HRS 11/26/19 Active BISAC-EVAC 10 mg suppository INSERT 1 SUPPOSITORY RECTALLY TWICE DAILY NEEDED FOR CONSTIPATION 99 11/26/19 Active VITAMIN D 1,000 unit tablet TAKE ONE TABLET BY MOUTH DAILY IN THE MORNING 11/26/19 Active calcium carbonate (TUMS) 200 mg calcium (500 mg) chewable tabletIndications: Heartburn 2 tabs Three times a day prn heartburn 30 tablet 01/12/20 Active gabapentin (NEURONTIN) 100 mg capsuleIndications :neuropathic pain Take 2 capsules by mouth 2 times daily. 0 01/12/20 Active sennosides (SENNA) 8.6 mg tabletIndications: Constipation, unspecified constipation type 1-2 po daily prn constipation 30 tablet 01/12/20 Active lancets (EASY TOUCH LANCETS) 26 gauge miscIndications:Ty pe 2 diabetes mellitus with diabetic neuropathy, without long-term current use of insulin (HC) Dispense item covered by pt ins. E11.9 NIDDM type II -3 x per week 100 Each 05/31/19 Active aspirin (ECOTRIN) 81 mg enteric coated tabletIndications: Type 2 diabetes mellitus with diabetic neuropathy, without long-term current use of insulin (HC) Take 1 tablet by mouth once daily with a meal. 0 10/26/19 19 Active risperiDONE (RISPERDAL) 1 mg tabletIndications: Dementia with behavioral disturbance, unspecified dementia type TAKE 1 TAB BY MOUTH IN THE AFTERNOON FOR MOOD DISORDER 30 tablet 11/20/19 Active atorvastatin (LIPITOR) 20 mg tabletIndications: Hyperlipidemia, unspecified hyperlipidemia type Take 1 tablet by mouth once daily. 30 tablet 12/02/19 19 Active lancets (UNISTIK 3 COMFORT LANCET)Indications :Type 2 diabetes mellitus with diabetic neuropathy, without long-term current use of insulin (HC) Test twice daily Dispense as covered per patient insurance 100 Each 01/26/20 Active insulin glargine (BASAGLAR KWIKPEN U-100 INSULIN) 100 unit/mL (3 mL) penIndications:Typ e 2 diabetes mellitus with diabetic neuropathy, without long-term current use of insulin (HC) Inject 10 Units subcutaneous before bedtime. 30 mL 5 01/26/20 Active sertraline (ZOLOFT) 50 mg tabletIndications: Anxiety Take 1/2 tablet by mouth daily for 7 days, then 1 daily for mood. 30 tablet 11 02/25/20 Active NOVOFINE AUTOCOVER 30 gauge x 1/3 needleIndications: Type 2 diabetes mellitus with diabetic neuropathy, without long-term current use of insulin (HC) USE DIRECTED ONCE DAILY WITH INSULIN PEN 100 Each 3 03/17/20 Active ramelteon (ROZEREM) 8 mg tabletIndications: Insomnia, unspecified type TAKE 1 TAB BY MOUTH AT BEDTIME 90 tablet 1 04/01/20 Active Deep Sea Nasal Crook 0.65 % nasal solution 04/21/20 23 Active omeprazole (PRILOSEC) 20 mg Delayed-Release capsule Take 20 mg by mouth once daily before a meal. 08/16/19 24 Active Banophen 25 mg capsule 12/20/19 24 Active diclofenac topical (VOLTAREN) 1 % gel 01/24/20 24 Active nystatin powder (MYCOSTATIN) powder 10/05/19 24 Active Hemorrhoidal,PE-mi n oil-joann, 0.25-14-74.9 % rectal ointment 08/26/19 24 Active chlorhexidine (PERIDEX) 0.12 % solution 02/21/20 24 Active tolnaftate 1% powder (TINACTIN) 1 % powder 02/14/20 24 Active HumaLOG KwikPen Insulin 100 unit/mL inpn pen 01/30/20 24 Active hydrocortisone 1 % cream 12/21/19 24 Active ibuprofen (ADVIL; MOTRIN) 400 mg tablet 02/14/20 24 Active meloxicam 15 mg tabletIndications: Lumbar facet arthropathy TAKE 1 TABLET BY MOUTH ONCE DAILY 30 Tablet 04/18/20 24 Active HYDROcodone-acetam inophen (5-325 mg/tablet)Indicati ons:Lumbar facet arthropathy Take 1 Tablet by mouth 3 times daily if needed for Pain. Max acetaminophen dose: 4000 mg in 24 hrs. 36 Tablet 05/11/19 25 Active oxyCODONE (ROXICODONE) 5 mg immediate release tablet 06/02/19 25 Active azithromycin (Zithromax Z-Uday) 250 mg tabletIndications: Asthmatic bronchitis without complication, unspecified asthma severity, unspecified whether persistent (HC) Take 500 mg (2 tabs) by mouth on day 1, then 250 mg (1 tab) daily for days 2-5. 6 Tablet 1 09/28/19 25 Active Active Problems Problem Noted Date Diagnosed Date Immunizations reviewed and up to date 07/28/2018 DNR (do not resuscitate) 07/28/2018 ACP (advance care planning) 07/28/2018 Dementia with behavioral disturbance 05/16/2015 Overview (05/16/2015): 05/16/2015 Pt referred from [facility] for behaviors including: refusing medications, verbally abusive towards staff. Bipolar I Affective Disorder (per history) with manic psychosis from description 09/15/2013 Chronic hepatitis C without mention of hepatic c rossana 09/08/2005 Overview (01/29/2012): Followed at [facility] by Dr. Browning. Disease stable. Recommend [...] 008 Obesity, unspecified 09/09/2005 016 Overview (05/09/2014): [facility]. 05/09/2014 Body mass index is [...] 07/28/2018 Overview (01/29/2012): Followed by Dr. Dumont. [facility] Vitamin D deficiency 019 Encounters Date Type Department Care Team Description 12/12/2024 3:20 PM CDT Ancillary Procedure [facility] [address] [place] [address] 12/12/2024 Travel 12/12/2024 Telephone [facility] [address] [place] [address] Romel Mcnair MD Recheck 12/05/2024 2:55 PM CDT - 12/05/2024 11:59 PM CDT Hospital Encounter [address] [address] Gee Orosco MD Rein, Erik, PT 12/05/2024 Travel 11/30/2024 2:57 PM CDT - 11/30/2024 11:59 PM CDT Hospital Encounter [address] [place] [address] Gee Orosco MD Rein, Erik, PT 11/30/2024 Travel 11/16/2024 2:53 PM CDT - 11/16/2024 11:59 PM CDT Hospital Encounter [address] [place] [address] Gee Orosco MD Rein, Erik, PT 11/16/2024 Travel 11/09/2024 3:28 PM CDT - 11/09/2024 11:59 PM CDT Hospital Encounter [address] [place] [address] Gee Orosco MD Rein, Erik, PT 11/09/2024 Travel 11/01/2024 3:00 PM CDT - 11/01/2024 11:59 PM CDT Hospital Encounter [address] [facility] [place] [address] Gee Orosco MD Rein, Erik, PT 11/01/2024 Travel 10/26/2024 2:44 PM CDT - 10/26/2024 11:59 PM CDT Hospital Encounter [address] [place] [address] Gee Orosco MD Rein, Erik, PT 10/26/2024 Travel 10/19/2024 2:03 PM CDT - 10/19/2024 11:59 PM CDT Hospital Encounter [address] [place] [address] Gee Orosco MD Rein, Erik, PT 10/19/2024 Travel 10/04/2024 2:48 PM CDT - 10/04/2024 11:59 PM CDT Hospital Encounter [address] [place] [address] Gee Orosco MD Rein, Erik, PT 10/04/2024 Travel from Last 3 Months Immunizations Immunization Administration Dates Next Due Inactivated Polio Vaccine [...] on file Legal Sex Female 5:38 AM [employer] Gender Identity Not on file Sexual Orientation Not on file Obstetrics History Last Filed Vital Signs Vital Sign Reading Time Taken Comments Blood Pressure 130/64 09/27/2024 11:08 AM CDT Pulse 104 06/21/2024 2:51 PM [employer] Temperature 37.4 C (99.3 F) 06/21/2024 2:51 PM [employer] Respiratory Rate 20 12/17/2015 8:00 AM CDT Oxygen Saturation 94% 06/21/2024 2:51 PM [employer] Inhaled Oxygen Concentration - - Weight 111.5 kg (245 lb 12.8 oz) 2024 11:08 AM CDT Height 162.6 cm (5' 4.02) 02/28/2024 1 0:10 AM CDT Body Mass Index 42.17 02/28/2024 10:10 AM CDT Plan of Treatment Upcoming Encounters Date Type Department Care Team (Late st Contact Info) Description 02/01/2025 2:40 PM CDT Office Visit [facility] [address] [place] [address] Gee Orosco MD [address] [place] [address] 02/14/2025 4:00 PM CDT Office Visit [facility] [address] [place] [address] Romel Mcnair MD [address] [place] [address] Health Maintenance Due Date Last Done Comments Hepatitis B series for 19+ ( 1 of 3 - Risk 3-dose series) 2007 Zoster (shingles) series for age 50+ (2 of 3) 08/04/2011 06/09/2011 Medicare Wellness for age 65+ 09/15/2012 09/15/2011 Tetanus booster 09/22/2016 09/22/2006 Depression screening for age 12+ 01/14/2019 01/14/2018, 01/13/2018, 01/11/2018, Additional history exists Pneumococcal series for age 50+ (3 of 3 - PCV20 or PCV21) 05/14/2022 05/14/2017, 04/08/2009, 04/04/2008 RSV vaccine for adults or (1 - 1-dose 75+ series) 07/07/2022 COVID-19 vaccine series ( season) 2024 02/03/2024, 03/02/2023, 03/13/2022, Additional history exists Influenza Vaccine (#1) 2025 7, 02/10/2013, 04/02/2012, Additional history exists BMI (ht and wt on same day) for age 18+ 02/27/2025 02/28/2024, 01/11/2018, 11/25/2015, Additional history exists Hepatitis C screening for ag e 18-79 Completed 09/09/2009, 12/06/2008 DEXA/DXA scan for age 65+ Completed 2012 (Completed outside of [facility]) Procedures Procedure Name Priority Date/Time Associated Diagnosis Comments XR MAMMO ANETTE BILAT SCREEN Routine 12/12/2024 3:30 PM CDT Encounter for screening mammogram for malignant neoplasm of breast HCV RNA QUANT Routine 09/09/2009 1:47 PM CDT Chronic hepatitis C without mention of hepatic coma from Last 3 Months or Most Recently Relevant to Health Maintenance Results * XR MAMMO ANETTE BILAT SCREEN (12/12/2024 3:30 PM CDT) Anatomical Region Laterality Modality BREASTS, Breast Left, Breast Right Bilateral Mammography Impressions 12/13/2024 1:56 PM CDT There is no radiographic evidence for malignancy. Recommend annual mammograms. MAMMOGRAM ASSESSMENT: ACR 1 Negative PATIENTS: You will also receive a letter with your examination results in an easy to read format. If you have questions about your results, please contact your referring provider. Narrative 12/13/2024 1:56 PM CDT For Patients: As a result of the 21st Century Cures Act, medical imaging exams and procedure reports are released immediately into your electronic medical record. You may view this report before your referring provider. If you have questions, please contact your health care provider. XR MAMMO ANETTE BILAT SCREEN [[id number]] CLINICAL HISTORY: This is an asymptomatic 79 y.o. patient. INDICATION FOR EXAM: Mammogram Screening. TECHNIQUE: CC and MLO views were obtained. This study was evaluated with the assistance of Computer-Aided Detection. Breast Tomosynthesis was used in interpretation. COMPARISON FILM: Yes 04/12/23 [facility] 02/24/21 [facility] [employer] FINDINGS: There are scattered areas of fibroglandular density. There are no dominant masses, suspicious micro calcifications or areas of architectural distortion. us Beth Carmona MD MAMMO Final Re sult * (ABNORMAL) HCV RNA RT-PCR,QNT [id number] (09/09/2009 1:47 PM CDT) HCV RNA RT-PCR Detected( A) [facility] NUMBER DETECTED 22,800,00 0 IU/mL [facility] SOURCE Blood [facility] Blood specimen (specimen) BLOOD SPECIMEN / Unknown 09/09/2009 1:47 PM CDT 09/09/2009 1:45 PM CDT Narrative [facility] - 09/16/2009 1:44 PM CDT Method: Benoit Taqman HCV Test us Ankit Sarmiento MD SEND OUTS Final Resu lt [facility] INTERNAL ZIP [id number] [place] [phone] from Last 3 Months or Most Recently Relevant to Health Maintenance Insurance MEDICARE PART A HB ONLY MEDICARE PART B HB ONLY MEDICA [employer] [facility] Advance Directives Documents on File Type Date Recorded 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 04/12/2018 2:43 PM 08/04/17 Healthcare Directive 03/17/2013 10:05 AM E [employer], [facility], 03/17/13 * Full Code (Latest Code Status [...] 9:07 PM 02/01/2010 1:40 PM Care Teams Charge Attendant Relationship Specialty Start Date End Date Beth Carmona MD [address] [address] PCP - General Family Practice 12/23/23 [facility] Neurology 04/02/12 Roscoe Hernandez MD [facility] [address] [phone] Provider Family Practice 07/09/19 Bárbara Tabor RN [address] [phone] Sales Person - [facility] Registered Nurse 02/07/21 Yudith Cowart, RN [address] [facility] [address] [place], [place] [id number] Sales Person - [facility] Registered Nurse 02/07/21
[2025-01-01 21:04] VITALS: BP 213/79; PULSE 103; RESP 22; TEMP 36.1; O2SAT 93; BMI 43.4
--- NOTE | 2025-01-01 21:50 | CRLHL7_ITS ---
For Patients: As a result of the Century Cures Act, medical imaging exams and procedure reports are released immediately into your electronic medical record. You may view this report before your referring provider. If you have questions, please contact your health care provider. INDICATION: Vertigo. TECHNIQUE: CT head without contrast. COMPARISON: None. FINDINGS: CSF spaces: Proportionate prominence of the ventricles and sulci, reflecting mild generalized cerebral volume loss. Brain parenchyma: The gonzales-white differentiation is maintained. Patchy white matter low attenuation changes, nonspecific but likely reflecting chronic small vessel ischemic disease. No evidence of intracranial hemorrhage, extra-axial collection, or midline shift. Atherosclerotic calcifications of the cavernous carotids and carotid siphons. Skull base and calvarium: The visualized paranasal sinuses and mastoid air cells demonstrate no acute or significant findings. Bilateral cataract extraction. No skull fractures. IMPRESSION: No acute intracranial abnormality. Please note that all CT scans at this facility use dose modulation, iterative reconstruction, and/or weight-based dosing when appropriate to reduce radiation dose to as low as reasonably achievable. Dictated by Eleuterio Jewell MD @ 01/01/2025 11:52:55 PM (Electronically Signed)
--- NOTE | 2025-01-01 21:50 | CT_ITS ---
Patient: AMERICA RANGEL Facility:?[facility] Patient ID:?[id number] Site Patient ID:?[id number]. Site :?[id number] Study:?CT-Neck Angio Angio 95CC ISOVUE 370 NONACUTE-01/01/2025 11:52:13 PM Ordering Physician:Gian Rhodes Final Report: DATE: 01/02/2025 CLINICAL HISTORY: Patient with vertigo. TECHNIQUE: Standard helical CT image acquisition through the head and neck was performed after intravenous contrast bolus enhancement. 2D and 3D MIP images for post- processing were performed and interpreted on an independent workstation and 3D images were permanently archived. COMPARISON: CT same day. FINDINGS: The origins of the great vessels from the aortic arch are patent. The origin of the right vertebral artery is patent. The origin of the left vertebral artery is patent. The common carotid arteries are patent There is plaque without stenosis at the origin of the right internal carotid artery. There is plaque without stenosis at the origin of the left internal carotid artery. The rest of the cervical segments of the internal carotid arteries are patent up to their intracranial segments. The intracranial segments of the internal carotid arteries are patent. The left vertebral artery is dominant. The cervical segments of the vertebral arteries are patent. The intracranial segments of the vertebral arteries are patent. The middle cerebral arteries are normal without aneurysm or proximal occlusion identified. The anterior cerebral arteries are normal without aneurysm or proximal occlusion identified. The anterior communicating artery is well visualized and appears normal. The basilar artery is normal without aneurysm or occlusion. The posterior cerebral arteries are normal without aneurysm or proximal occlusion. There is normal opacification of major intracranial venous structures. The visualized lung apices are unremarkable The thyroid gland is unremarkable. The soft tissues of the neck are unremarkable. There are degenerative changes in the cervical spine. IMPRESSION: Patent cervical and proximal intracranial vasculature. Please note that all CT scans at this facility use dose modulation, iterative reconstruction, and/or weight-based dosing when appropriate to reduce radiation dose to as low as reasonably achievable. Dictated by Kash Cope MD @ 01/02/2025 1:16:53 PM Signed by:?Kash Cope MD @01/02/2025 1:16:53 PM (Electronic Signature)
--- OUTSIDE RECORDS SUMMARY | 2025-01-01 22:01 | XMS_ITS ---
Author Name Auto Generated, Auto Generated Organization [employer] Functional Status No Results Mental Status No Results Allergies and Intolerances No Known Allergies Problems Active Concerns * Health care maintenance* Code: [id number] * Start Date: WedDec 20 09:29:00 EDT 2024 * End Date: * Text: * Infection of nail bed of finger of right hand* Code: [id number] * Start Date: WedAug 06 19:22:00 EDT 2024 * End Date: * Text: * Bronchitis* Code: [id number] * Start Date: WedOct 08 23:25:00 EDT 2024 * End Date: * Text: Reason for Referral
--- NOTE | 2025-01-01 22:12 | ED.GENADULT ---
HPI - General Adult General Chief complaint: Dizziness/Vertigo <Meagan Mendoza MD - Last Filed: 01/01/25 23:55> Stated complaint: dizzy and back pain <Meagan Mendoza MD - Last Filed: 01/01/25 23:55> Time Seen by Provider: 01/01/25 21:36 <Meagan Mendoza MD - Last Filed: 01/01/25 23:55> Source: patient and family <Meagan Mendoza MD - Last Filed: 01/01/25 23:55> Mode of arrival: ambulatory <Meagan Mendoza MD - Last Filed: 01/01/25 23:55> Limitations: no limitations <Meagan Mendoza MD - Last Filed: 01/01/25 23:55> History of Present Illness HPI narrative: 79-year-old female, very poor historian, presents today with several concerns. First concern is that she is dizzy. Patient states she has been dizzy for several weeks then she states it has been about 1 week. She states that she has been taking meclizine and took it for approximately 3 days and that did not help. She describes it as the room spinning around her. She states that is worse when she lays down in bed and turns to her right. She states that she is asymptomatic if she is lying in bed in turns to her left. She states that every now and then she becomes nauseated, has not vomited. Denies fevers or chills. She states that in the last couple days the dizziness has become significantly worse to the point where she cannot walk without assistance. However her daughters tell me that she was at their house last night and she had no problem with ambulation. Upon further conversation perhaps the symptoms are really gotten worse in the last several hours. She was able to walk down for breakfast and lunch today but was not able to walk down for dinner. She feels that when she walks now she almost falls to 1 side and she can not walk in a straight line. She denies headache, blurry vision, ringing in her ears. She denies altered speech, increased confusion or focal neurologic deficits. Her 2nd concern is she is concerned about a UTI. She states that she has had increased urinary frequency and urgency for approximately 2 or 3 days. She complains of right-sided flank pain that comes and goes, dull in nature. Again no fevers or chills. No vomiting. She denies any change in the color or sent her urine. No abdominal pain. <Meagan Mendoza MD - Last Filed: 01/01/25 23:55> Related Data Home medications: Home Medications ?Medication ?Instructions ?Recorded ?Confirmed acetaminophen 500 mg tablet 500 mg BID 06/04/24 albuterol sulfate 90 mcg/actuation 1 inh inhalation PRN 06/04/24 aerosol inhaler aspirin 81 mg chewable tablet 1 tab DAILY 06/04/24 atorvastatin 40 mg tablet 40 mg DAILY 06/04/24 dulaglutide 0.75 mg/0.5 mL mg subcut 06/04/24 subcutaneous pen injector (Trulicity) gabapentin 100 mg capsule 100 mg BID 06/04/24 guaifenesin 600 mg tablet, mg PO 06/04/24 extended release 12 hr (Mucus Relief ER) insulin lispro 100 unit/mL subcut 06/04/24 subcutaneous pen (Humalog KwikPen (U-100) Insulin) meloxicam 15 mg tablet 15 mg DAILY 06/04/24 metformin 750 mg tablet,extended 750 mg PO DAILY 06/04/24 01/01/25 release 24 hr omeprazole 20 mg capsule,delayed 20 mg DAILY 06/04/24 release oxycodone 5 mg tablet mg 06/04/24 peg 400-propylene glycol 0.4 %-0.3 drp ophthalmic (eye) 06/04/24 % eye gel drops (Systane Gel) ibuprofen 400 mg tablet (IBU) 400 mg PO Q8H 01/01/25 01/01/25 insulin glargine 100 unit/mL (3 40 unit subcut DAILY 01/01/25 01/01/25 mL) subcutaneous pen (Lantus Solostar U-100 Insulin) meclizine 12.5 mg tablet 12.5 mg PO Q12H PRN dizziness 01/01/25 01/01/25 ramelteon 8 mg tablet 8 mg PO QPM 01/01/25 01/01/25 risperidone 0.5 mg tablet 0.5 mg PO DAILY 01/01/25 01/01/25 (Risperdal) risperidone 1 mg tablet 1 mg PO QPM 01/01/25 01/01/25 sertraline 100 mg tablet 200 mg PO DAILY 01/01/25 01/01/25 Previous Rx's ?Medication ?Instructions ?Recorded prednisone 20 mg tablet 60 mg (3 x 20 mg) PO DAILY 6 days 06/04/24 #18 tabs valacyclovir 1 gram tablet 1,000 mg PO TID 7 days #21 tabs 06/04/24 <Meagan Mendoza MD - Last Filed: 01/01/25 23:55> Allergies/adverse reactions: Allergies Allergy/AdvReac Type Severity Reaction Status Date / Time amoxicillin Allergy Mild Verified 01/01/25 23:53 ziprasidone Allergy Mild Verified 01/01/25 23:53 aripiprazole (From Abilify) Allergy Verified 01/01/25 23:53 codeine Allergy Verified 01/01/25 23:53 olanzapine (From Zyprexa) Allergy Verified 01/01/25 23:53 trazodone Allergy Verified 01/01/25 23:53 <Meagan Mendoza MD - Last Filed: 01/01/25 23:55> Review of Systems Status of ROS: Reports: 10 or more systems reviewed and unremarkable except as noted in History and below <Meagan Mendoza MD - Last Filed: 01/01/25 23:55> PFSH PFSH Social History: Social History Smoking Status: Former smoker Do you use any of these nicotine containing products: None How often do you have a drink containing alcohol: never How often do you have six or more drinks on one occasion: Never AUDIT-C Alcohol total score: 0 Non-prescribed substance use: denies use service: No <Meagan Mendoza MD - Last Filed: 01/01/25 23:55> Exam Narrative: Exam Narrative: Obese, well-developed patient in no acute distress. Alert and oriented x3. Mood and affect are appropriate. Thoughts are goal oriented and rational. No tangential or magical thinking noted. Patient speaks in full sentences without needing to catch her breath. Speech is not slurred or pressured. HEENT: Normocephalic atraumatic. Pupils are equally round reactive to light. Extraocular muscles are intact. Conjunctivae are moist without any icterus noted. Moist mucous membranes. Posterior pharynx is normal. Neck is soft without any lymphadenopathy. Cardiovascular: Heart is regular rate and rhythm S1 and S2 are present without any murmurs. Lungs: Clear to auscultation bilaterally no wheezes rhonchi or rales are appreciated. Patient takes deep breaths without any discomfort. Abdomen: Soft and nontender nondistended with normal bowel sounds. Protuberant, difficult to assess for organomegaly secondary to body habitus. Extremities: Bilateral lower extremities are without pitting edema. Skin: Well perfused without any obvious rashes. Strength is 5/5 of the upper and lower extremities. Hand mule driver is normal and symmetric. Reflexes are 2+ and symmetric at the knees. Cranial nerves 3-12 are normal. [id number] is normal. There is no nystagmus either horizontally or vertically. I cannot elicit her dizziness with head movement. <Meagan Mendoza MD - Last Filed: 01/01/25 23:55> Const: Vital Signs, click to edit/add: Vital Signs - 24 hr 01/01/25 21:04 01/01/25 23:48 01/01/25 23:50 Temperature 97 F L 97 F L Pulse Rate [Pulse Oximeter] 103 H 96 Respiratory Rate 22 20 Blood Pressure [Ri ght Forearm] 213/79 H 217/91 H 215/96 H Pulse Oximetry 93 Oxygen Delivery Me thod Room Air 01/01/25 23:51 Temperature Pulse Rate [Pulse Oximeter] Respiratory Rate Blood Pressure [Ri ght Forearm] 197/93 H Pulse Oximetry Oxygen Delivery Me thod <Meagan Mendoza MD - Last Filed: 01/01/25 23:55> Vital Signs, click to edit/add: Vital Signs - 24 hr 01/01/25 21:04 01/01/25 23:48 01/01/25 23:50 Temperature 97 F L 97 F L Pulse Rate [Pulse Oximeter] 103 H 96 Respiratory Rate 22 20 Blood Pressure [Ri ght Forearm] 213/79 H 217/91 H 215/96 H Pulse Oximetry 93 Oxygen Delivery Me thod Room Air 01/01/25 23:51 Temperature Pulse Rate [Pulse Oximeter] Respiratory Rate Blood Pressure [Ri ght Forearm] 197/93 H Pulse Oximetry Oxygen Delivery Me thod <Michele Dang DO - Last Filed: 01/02/25 00:38> Course Course ED Course: There is concern for stroke given her deterioration in last few hours and inability to walk without assistance and with her elevation in blood pressure. Head CT, head neck CTA were all ordered. CBC shows a new anemia with a hemoglobin of 10.6. Hemoglobin was 12.5 in May of this year. Patient does not have an elevated white cell count. Sodium is a little low at 133, electrolytes are otherwise unremarkable. Insulin is 199. Normal lactate. Normal LFTs. Normal CRP. Head CT unremarkable. <Meagan Mendoza MD - Last Filed: 01/01/25 23:55> Vital Signs Vital signs: Initial Vital Signs Temperature 97 F L 01/01/25 21:04 Temperature Source Temporal Artery Scan 01/01/25 21:04 Pulse Rate 103 H 01/01/25 21:04 Pulse Rhythm Regular 01/01/25 21:04 Pulse Strength 3+ Normal 01/01/25 21:04 Respiratory Rate 22 01/01/25 21:04 Blood Pressure 213/79 H 01/01/25 21:04 Blood Pressure Mean 123 H 01/01/25 21:04 Blood Pressure Position Sitting 01/01/25 21:04 Pulse Oximetry 93 01/01/25 21:04 Oxygen Delivery Method Room Air 01/01/25 21:04 Vital Signs Temperature 97 F L 01/01/25 21:04 Pulse Rate 103 H 01/01/25 21:04 Respiratory Rate 22 01/01/25 21:04 Blood Pressure 213/79 H 01/01/25 21:04 Pulse Oximetry 93 01/01/25 21:04 Oxygen Delivery Method Room Air 01/01/25 21:04 Temperature 97 F L 01/01/25 23:48 Pulse Rate 96 01/01/25 23:48 Respiratory Rate 20 01/01/25 23:48 Blood Pressure 197/93 H 01/01/25 23:51 Pulse Oximetry 93 01/01/25 21:04 Oxygen Delivery Method Room Air 01/01/25 21:04 <Meagan Mendoza MD - Last Filed: 01/01/25 23:55> Initial Vital Signs Temperature 97 F L 01/01/25 21:04 Temperature Source Temporal Artery Scan 01/01/25 21:04 Pulse Rate 103 H 01/01/25 21:04 Pulse Rhythm Regular 01/01/25 21:04 Pulse Strength 3+ Normal 01/01/25 21:04 Respiratory Rate 22 01/01/25 21:04 Blood Pressure 213/79 H 01/01/25 21:04 Blood Pressure Mean 123 H 01/01/25 21:04 Blood Pressure Position Sitting 01/01/25 21:04 Pulse Oximetry 93 01/01/25 21:04 Oxygen Delivery Method Room Air 01/01/25 21:04 Vital Signs Temperature 97 F L 01/01/25 21:04 Pulse Rate 103 H 01/01/25 21:04 Respiratory Rate 22 01/01/25 21:04 Blood Pressure 213/79 H 01/01/25 21:04 Pulse Oximetry 93 01/01/25 21:04 Oxygen Delivery Method Room Air 01/01/25 21:04 Temperature 97 F L 01/01/25 23:48 Pulse Rate 96 01/01/25 23:48 Respiratory Rate 20 01/01/25 23:48 Blood Pressure 197/93 H 01/01/25 23:51 Pulse Oximetry 93 01/01/25 21:04 Oxygen Delivery Method Room Air 01/01/25 21:04 <Michele Dang, - Last Filed: 01/02/25 00:38> Medical Decision Making MDM Narrative Medical decision making narrative: Patient is 79-year-old female signed out to me pending urinalysis and road test. Urinalysis shows no acute concerning abnormalities. Patient was able to get up and walk around the department. She did state she felt fatigued but did not get dizzy at all. I spoke to her and if she feels safe going back to her apartment she states she does feel safe. She lives in [facility]. I also spoke to her daughter zachary who is in agreement with this plan. I explained that they should follow up and possibly get physical therapy for her dizziness and to follow-up with her primary care provider about the patient's hypertension. Patient is safe for discharge and they are agreeable to this plan <Michele Dang, - Last Filed: 01/02/25 00:38> Lab Data Labs: Lab Results 01/01/25 01/02/25 Range/Units 22:41 00:05 WBC 8.34 (4.50-11.00) K/uL RBC 4.45 (4.00-5.20) m/uL Hgb 10.6 L (12.0-16.0) gm/dL Hct 34.7 (33.0-51.0) % MCV 78 L (80-100) fL MCH 24 L (26-34) pg MCHC 31 L (32-36) gm/dL RDW Coeff of Gamal 16.5 H (11.5-15.5) % Plt Count 183 (140-440) K/uL Neut % (Auto) 53.4 (42.0-72.0) % Lymph % (Auto) 34.4 (20-44) % [place] % (Auto) 10.4 (0.0-11.0) % Eos % (Auto) 1.0 (0.0-7.0) % Baso % (Auto) 0.1 (0.0-3.0) % Neut # (Auto) 4.45 (1.7-7.0) K/uL Lymph # (Auto) 2.87 (0.90-2.90) K/uL [place] # (Auto) 0.90 (0.00-0.90) K/UL Eos # (Auto) 0.08 (0.00-0.50) K/uL Baso # (Auto) 0.01 (0.00-0.30) K/uL Abs Immat Gran (auto) 0.06 (0.00-0.30) K/uL Imm/Tot Granulo (auto) 0.7 % Sodium 133 L (135-149) mmol/L Potassium 4.9 (3.6-5.1) mmol/L Chloride 101 (96-114) mmol/L Carbon Dioxide 28 (20-32) mmol/L Anion Gap 4 L (7-15) mEq/L BUN 18 (7-30) mg/dL Creatinine 0.8 (0.5-1.5) mg/dL Estimated Creat Clear 40.68 Estimated GFR 76 ml/min Glucose 199 H (60-115) mg/dL Lactate 1.5 (0.5-1.9) mmol/L Calcium 9.4 (8.4-10.6) mg/dL Total Bilirubin 0.7 (0.1-1.5) mg/dL Direct Bilirubin 0.3 (0.0-0.5) mg/dL AST 35 (12-35) U/L ALT 22 (4-35) U/L Alkaline Phosphatase 82 (40-150) U/L Troponin I < 0.01 (0.01-0.04) ng/mL C-Reactive Protein < 0.5 L (0.5-1.0) mg/dL Total Protein 6.9 (6.0-8.3) g/dL Albumin 3.9 (3.3-5.0) g/dL Urine Color Yellow (Yellow) Urine Appearance Clear (Clear) Urine pH 6.0 (5.0-8.5) Ur Specific Mcgregor <= 1.005 (1.000-1.030) Urine Protein Negative (Negative) Urine Glucose (UA) Negative (Negative) Urine Ketones Negative (Negative) Urine Blood Trace-intact A (Negative) Urine Nitrite Negative (Negative) Urine Bilirubin Negative (Negative) Urine Urobilinogen 0.2 (0.2-1.0) Ur Leukocyte Esterase Negative (Negative) Urine RBC 0-2 (0-2) Urine WBC 0-2 (0-5) Ur Squamous Epith Cells Moderate A (None-Few) Urine Bacteria Few A (None) <Meagan Mendoza MD - Last Filed: 01/01/25 23:55> Lab Results 01/01/25 01/02/25 Range/Units 22:41 00:05 WBC 8.34 (4.50-11.00) K/uL RBC 4.45 (4.00-5.20) m/uL Hgb 10.6 L (12.0-16.0) gm/dL Hct 34.7 (33.0-51.0) % MCV 78 L (80-100) fL MCH 24 L (26-34) pg MCHC 31 L (32-36) gm/dL RDW Coeff of Gamal 16.5 H (11.5-15.5) % Plt Count 183 (140-440) K/uL Neut % (Auto) 53.4 (42.0-72.0) % Lymph % (Auto) 34.4 (20-44) % [place] % (Auto) 10.4 (0.0-11.0) % Eos % (Auto) 1.0 (0.0-7.0) % Baso % (Auto) 0.1 (0.0-3.0) % Neut # (Auto) 4.45 (1.7-7.0) K/uL Lymph # (Auto) 2.87 (0.90-2.90) K/uL [place] # (Auto) 0.90 (0.00-0.90) K/UL Eos # (Auto) 0.08 (0.00-0.50) K/uL Baso # (Auto) 0.01 (0.00-0.30) K/uL Abs Immat Gran (auto) 0.06 (0.00-0.30) K/uL Imm/Tot Granulo (auto) 0.7 % Sodium 133 L (135-149) mmol/L Potassium 4.9 (3.6-5.1) mmol/L Chloride 101 (96-114) mmol/L Carbon Dioxide 28 (20-32) mmol/L Anion Gap 4 L (7-15) mEq/L BUN 18 (7-30) mg/dL Creatinine 0.8 (0.5-1.5) mg/dL Estimated Creat Clear 40.68 Estimated GFR 76 ml/min Glucose 199 H (60-115) mg/dL Lactate 1.5 (0.5-1.9) mmol/L Calcium 9.4 (8.4-10.6) mg/dL Total Bilirubin 0.7 (0.1-1.5) mg/dL Direct Bilirubin 0.3 (0.0-0.5) mg/dL AST 35 (12-35) U/L ALT 22 (4-35) U/L Alkaline Phosphatase 82 (40-150) U/L Troponin I < 0.01 (0.01-0.04) ng/mL C-Reactive Protein < 0.5 L (0.5-1.0) mg/dL Total Protein 6.9 (6.0-8.3) g/dL Albumin 3.9 (3.3-5.0) g/dL Urine Color Yellow (Yellow) Urine Appearance Clear (Clear) Urine pH 6.0 (5.0-8.5) Ur Specific [place] <= 1.005 (1.000-1.030) Urine Protein Negative (Negative) Urine Glucose (UA) Negative (Negative) Urine Ketones Negative (Negative) Urine Blood Trace-intact A (Negative) Urine Nitrite Negative (Negative) Urine Bilirubin Negative (Negative) Urine Urobilinogen 0.2 (0.2-1.0) Ur Leukocyte Esterase Negative (Negative) Urine RBC 0-2 (0-2) Urine WBC 0-2 (0-5) Ur Squamous Epith Cells Moderate A (None-Few) Urine Bacteria Few A (None) <Michele Dang DO - Last Filed: 01/02/25 00:38> Imaging Data CT scan - head: Attestation: I have reviewed the pertinent imaging results. <Meagan Mendoza MD - Last Filed: 01/01/25 23:55> Radiologist's impression: TECHNIQUE: CT head without contrast. COMPARISON: None. FINDINGS: CSF spaces: Proportionate prominence of the ventricles and sulci, reflecting mild generalized cerebral volume loss. Brain parenchyma: The gonzales-white differentiation is maintained. Patchy white matter low attenuation changes, nonspecific but likely reflecting chronic small vessel ischemic disease. No evidence of intracranial hemorrhage, extra-axial collection, or midline shift. Atherosclerotic calcifications of the cavernous carotids and carotid siphons. Skull base and calvarium: The visualized paranasal sinuses and mastoid air cells demonstrate no acute or significant findings. Bilateral cataract extraction. No skull fractures. IMPRESSION: No acute intracranial abnormality. <Meagan Mendoza MD - Last Filed: 01/01/25 23:55> CTA head and neck: Attestation: I have reviewed the pertinent imaging results. <Michele Dang DO - Last Filed: 01/02/25 00:38> Radiologist's impression: PRELIMINARY IMPRESSION: CTA head: No sign of large vessel occlusion or significant aneurysm. CTA neck: No sign of dissection or significant stenosis. Dictated by Eleuterio Jewell MD @ 01/02/2025 12:00:04 AM <Michele Dang DO - Last Filed: 01/02/25 00:38> Discharge Plan Discharge Clinical Impression: Benign paroxysmal positional vertigo Qualifiers: Laterality: unspecified laterality Qualified Code(s): H81.10 - Benign paroxysmal vertigo, unspecified ear <Meagan Mendoza MD - Last Filed: 01/01/25 23:55> Patient Disposition: Home w/ Parent or Adult <Meagan Mendoza MD - Last Filed: 01/01/25 23:55> Condition: Improved <Meagan Mendoza MD - Last Filed: 01/01/25 23:55> Instructions: Benign Paroxysmal Positional Vertigo (DC) <Meagan Mendoza MD - Last Filed: 01/01/25 23:55> Additional Instructions: We do not see any abnormalities any lab work or imaging. CT and CTA were done. Seems likely dizziness may be positionally related and it may benefit you to follow-up with physical therapy for this. I also recommend following up with the primary care provider about your hypertension. Return to emergency department for new or worsening symptoms <Meagan Mendoza MD - Last Filed: 01/01/25 23:55> Prescriptions: No Action atorvastatin 40 mg tablet 40 mg DAILY meloxicam 15 mg tablet 15 mg DAILY acetaminophen 500 mg tablet 500 mg BID Patient Comments: [NO ORIGINAL SIG] omeprazole 20 mg capsule,delayed release(DR/EC) 20 mg DAILY aspirin 81 mg tablet,chewable 1 tab DAILY gabapentin 100 mg capsule 100 mg BID Patient Comments: [NO ORIGINAL SIG] albuterol sulfate 90 mcg/actuation HFA aerosol inhaler 1 inh INHALATION PRN Patient Comments: [NO ORIGINAL SIG] oxycodone 5 mg tablet insulin lispro [Humalog KwikPen Insulin] 100 unit/mL insulin pen subcut metformin 750 mg tablet extended release 24 hr 750 mg PO DAILY Systane Gel 0.4-0.3 % drops,gel ophthalmic (eye) guaifenesin [Mucus Relief ER] 600 mg tablet extended release 12hr PO Patient Comments: [NO ORIGINAL SIG] Trulicity 0.75 mg/0.5 mL pen injector subcut prednisone 20 mg tablet 60 mg PO DAILY 6 Days Qty: 18 0RF valacyclovir 1 gram tablet 1,000 mg PO TID 7 Days Qty: 21 0RF ibuprofen [IBU] 400 mg tablet 400 mg PO Q8H insulin glargine [Lantus Solostar U-100 Insulin] 100 unit/mL (3 mL) insulin pen 40 unit subcut DAILY ramelteon 8 mg tablet 8 mg PO QPM risperidone [Risperdal] 0.5 mg tablet 0.5 mg PO DAILY risperidone 1 mg tablet 1 mg PO QPM sertraline 100 mg tablet 200 mg PO DAILY meclizine 12.5 mg tablet 12.5 mg PO Q12H PRN (Reason: dizziness) <Meagan Mendoza MD - Last Filed: 01/01/25 23:55> Follow Up/Referrals: Ellen Us, PAO, RN [Primary Care Provider, Family Practice] <Meagan Mendoza MD - Last Filed: 01/01/25 23:55> Stand Alone Forms: MyHealth Info Instructions <Meagan Mendoza MD - Last Filed: 01/01/25 23:55>
[2025-01-01 22:51] LABS: Lactate* 1.5 mmol/L (0.5-1.9)
[2025-01-01 23:01] LABS: Hematocrit 34.7 % (33.0-51.0); Hemoglobin* 10.6 gm/dL (12.0-16.0); Immature Granulocytes Abs Auto 0.06 K/uL (0.00-0.30); Immature Granulocytes Pct Auto 0.7 %; Lymphocytes Absolute Auto 2.87 K/uL (0.90-2.90); Mean Corpuscular HGB Conc 31 gm/dL (32-36); Mean Corpuscular Hemoglobin 24 pg (26-34); Mean Corpuscular Volume 78 fL (80-100); RDW Coefficient of Variation % 16.5 % (11.5-15.5); Red Blood Count 4.45 m/uL (4.00-5.20); White Blood Count* 8.34 K/uL (4.50-11.00)
[2025-01-01 23:03] LABS: Slide Review Reflex No
[2025-01-01 23:07] LABS: Albumin* 3.9 g/dL (3.3-5.0); Chloride* 101 mmol/L (96-114); Potassium* 4.9 mmol/L (3.6-5.1); Sodium* 133 mmol/L (135-149)
[2025-01-01 23:09] LABS: Blood Urea Nitrogen* 18 mg/dL (7-30); Creatinine* 0.8 mg/dL (0.5-1.5); Est. Creatinine Clearance* 40.68; Estimated Glomerular Filt Rate 76 ml/min
[2025-01-01 23:10] LABS: Alanine Aminotransferase* 22 U/L (4-35); Alkaline Phosphatase* 82 U/L (40-150); Anion Gap 4 mEq/L (7-15); Aspartate Amino Transferase* 35 U/L (12-35); Bilirubin Direct* 0.3 mg/dL (0.0-0.5); Bilirubin Total* 0.7 mg/dL (0.1-1.5); Calcium* 9.4 mg/dL (8.4-10.6); Carbon Dioxide* 28 mmol/L (20-32); Glucose* 199 mg/dL (60-115); Total Protein* 6.9 g/dL (6.0-8.3)
[2025-01-01 23:48] VITALS: BP 217/91; PULSE 96; RESP 20; TEMP 36.1
[2025-01-01 23:50] VITALS: BP 215/96
[2025-01-01 23:51] VITALS: BP 197/93
[2025-01-02 00:13] LABS: Appearance Urine Clear (Clear)
== END 2025-01-02 01:00 | disposition home or self-care (01) ==
PROVIDERS: Emergency Provider Family Medicine; PCP Nurse Practitioner Gerontology
DX: H81.13 Benign paroxysmal vertigo, bilateral (principal)
CPT/HCPCS: 36415; 70450; 70496; 70498; 80048; 80076; 81001; 83605; 84484; 85025; 86140; 87086; 93005; 94761; 99284; 99285; Q9967

== ENCOUNTER 2025-01-23 10:21 | Outpatient (REF) | payer MEDICARE, SELFPAY ==
--- OUTSIDE RECORDS SUMMARY | 2025-01-24 00:22 | XMS_ITS | Clinical Summary ---
Author Organization [employer] [facility] Address [address] [place] [id number] Care Team Providers Care Packaging Coordinator Name Role Phone [place], [facility] Unavail able Unavailable Roscoe Hernandez MD Unavailable [phone] Bárbara Tabor RN Unavailable [phone] Yudith Cowart RN Unavailable [phone] Beth Carmona MD Primary Care Provider + Allergies Active Allergy Reactions Criticality Noted Date Comments Aripiprazole Other - Describe In Comment Field 06/16/2010 Pt states she feels fatigue and has weight gain. Codeine Nausea Only 12/14/2007 Lactose Other - Describe In Comment Field 09/15/2011 career consultant told her she was allergic Menthol *Unknown [...] tablet 1 04/01/20 Active Deep Sea Nasal [place] 0.65 % nasal solution 04/21/20 23 Active [...] 05/16/2015 Overview (05/16/2015): 05/16/2015 Pt referred from [facility] for behaviors including: refusing medications, verbally abusive towards staff. Bipolar I Affective Disorder (per history) with manic psychosis from description 09/15/2013 Chronic hepatitis C without mention of hepatic c rossana 09/08/2005 Overview (01/29/2012): Followed at [facility] by Dr. Browning. Disease stable. Recommend [...] 07/28/2018 Overview (01/29/2012): Followed by Dr. Dumont. [facility] Vitamin D deficiency 019 Encounters Date Type Department Care Team Description 01/22/[address] [address] Gee Orosco MD Appointment (back pain getting bad) 01/12/2025 Nurse Triage [address] [address] Gee Orosco MD Headache; Back Pain 01/05/[address] [address] Gee Orosco MD Appointment Request 12/12/2024 3:20 PM CDT Ancillary Procedure [facility] [address] [place] [address] 12/12/2024 Travel 12/12/2024 Telephone [facility] [address] [place] [address] Romel Mcnair MD Recheck 12/05/2024 2:55 PM CDT - 12/05/2024 11:59 PM CDT Hospital Encounter [address] [place] [address] Gee Orosco MD Rein, Erik, PT 12/05/2024 Travel 11/30/2024 2:57 PM CDT - 11/30/2024 11:59 PM CDT Hospital Encounter [address] [address] Gee Orosco MD Rein, Erik, PT 11/30/2024 Travel 11/16/2024 2:53 PM CDT - 11/16/2024 11:59 PM CDT Hospital Encounter [address] [address] Gee Orosco MD Rein, Erik, PT 11/16/2024 Travel 11/09/2024 3:28 PM CDT - 11/09/2024 11:59 PM CDT Hospital Encounter [address] [address] Gee Orosco MD Rein, Erik, PT 11/09/2024 Travel 11/01/2024 3:00 PM CDT - 11/01/2024 11:59 PM CDT Hospital Encounter [address] [address] Gee Orosco MD Rein, Erik, PT 11/01/2024 Travel 10/26/2024 2:44 PM CDT - 10/26/2024 11:59 PM CDT Hospital Encounter [address] [address] Gee Orosco MD Rein, Erik, PT 10/26/2024 Travel from Last 3 Months Immunizations Immunization [...] on file Legal Sex Female 5:38 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 Gender Identity Not on file Sexual Orientation Not on file Obstetrics History Last Filed Vital Signs Vital Sign Reading Time Taken Comments Blood Pressure 130/64 09/27/2024 11:08 AM CDT Pulse 104 06/21/2024 2:51 PM ACTIVITIES LEADER Temperature 37.4 C (99.3 F) 06/21/2024 2:51 PM ACTIVITIES LEADER Respiratory Rate 20 12/17/2015 8:00 AM CDT Oxygen Saturation 94% 06/21/2024 2:51 PM ACTIVITIES LEADER Inhaled Oxygen Concentration - - Weight 111.5 kg (245 lb 12.8 oz) 2024 11:08 AM CDT Height 162.6 cm (5' 4.02) 02/28/2024 1 0:10 AM CDT Body Mass Index 42.17 02/28/2024 10:10 AM CDT Plan of Treatment Upcoming Encounters Date Type Department Care Team (Late st Contact Info) Description 02/06/2025 10:40 AM CDT Office Visit [facility] at [address] [phone] Gee Orosco MD [address] [place] [address] 02/14/2025 4:00 PM CDT Office Visit [facility] [address] [place] [address] Romel Mcnair MD [address] [place] [address] 03/05/2025 1:20 PM CDT Office Visit [facility] [address] [place] [address] Gee Orosco MD [address] [place] [address] Health Maintenance Due Date Last Done Comments [...] series) 07/07/2022 COVID-19 vaccine series ( season) 2025 02/03/2024, 03/02/2023, 03/13/2022, Additional history exists Influenza Vaccine (#1) 2025 7, 02/10/2013, 04/02/2012, Additional history exists BMI (ht and wt on same day) for age 18+ 02/27/2025 02/28/2024, 01/11/2018, 11/25/2015, Additional history exists Hepatitis C screening for ag e 18-79 Completed 09/09/2009, 12/06/2008 DEXA/DXA scan for age 65+ Completed 2012 (Completed outside of [facility]) Procedures Procedure Name Priority Date/Time Associated Diagnosis [...] For Patients: As a result of the Century Cures Act, medical imaging exams and procedure reports are released immediately into your electronic medical record. You may view this report before your referring provider. If you have questions, please contact your health care provider. XR MAMMO ANETTE BILAT SCREEN [[id number]] CLINICAL HISTORY: This is an asymptomatic 79 y.o. patient. INDICATION FOR EXAM: Mammogram Screening. TECHNIQUE: CC and MLO views were obtained. This study was evaluated with the assistance of Computer-Aided Detection. Breast Tomosynthesis was used in interpretation. COMPARISON FILM: Yes 04/12/23 [facility] 02/24/21 [employer] FINDINGS: There are scattered areas of fibroglandular density. There are no dominant masses, suspicious micro calcifications or areas of architectural distortion. us Beth Carmona MD MAMMO Final Re sult * (ABNORMAL) HCV RNA RT-PCR,QNT [id number] (09/09/2009 1:47 PM CDT) HCV RNA RT-PCR Detected( A) [facility] NUMBER DETECTED 22,800,00 0 IU/mL [facility] SOURCE Blood [facility] Blood specimen (specimen) BLOOD SPECIMEN / Unknown 09/09/2009 1:47 PM CDT 09/09/2009 1:45 PM CDT Narrative [facility] - 09/16/2009 1:44 PM CDT Method: Benoit Taqman HCV Test us Ankit Sarmiento MD SEND OUTS Final Resu lt [facility] INTERNAL ZIP [address] [address] from Last 3 Months or Most Recently Relevant to Health Maintenance Insurance MEDICARE PART A HB ONLY MEDICARE PART B HB ONLY MEDICA DUAL SOLUTIONS [facility] Advance Directives Documents on File Type Date Recorded Patient Vegetable Packer Expl anation POLST 04/12/2018 2:43 PM 08/04/17 Healthcare Directive 03/17/2013 10:05 AM E MERGENCY RESUSCITATION GUIDELINES, [facility], 03/17/13 * Full Code (Latest Code [...] 9:07 PM 02/01/2010 1:40 PM Care Teams Packaging Coordinator Relationship Specialty Start Date End Date Beth Carmona MD [address] [facility] [address] [place] [address] PCP - General Family Practice 12/23/23 [facility] Neurology 04/02/12 Roscoe Hernandez MD [address] [facility] [address] [place], [place] [address] Provider Family Practice 07/09/19 Bárbara Tabor, RN [address] [facility] [address] [place], [place] [address] Cricket Coach - [facility] Registered Nurse 02/07/21 Yudith Cowart, RN [address] [facility] [address] [place], [place] [address] Cricket Coach - [facility] Registered Nurse 02/07/21
[2025-02-02 09:51] LABS: MUSKAb <1:10
== END 2025-01-23 10:22 | disposition home or self-care (01) ==
LOC: NPINS 10:21
PROVIDERS: PCP Nurse Practitioner Gerontology; Visit Provider Nurse Practitioner Gerontology
DX: G70.00 Myasthenia gravis without (acute) exacerbation (principal)
CPT/HCPCS: 83519; 86041; 86366

== ENCOUNTER 2025-02-05 12:31 | Outpatient (CLI) | payer MEDICARE, SELFPAY ==
--- NOTE | 2025-02-05 13:00 | CRLHL7_ITS ---
For Patients: As a result of the 21st Century Cures Act, medical imaging exams and procedure reports are released immediately into your electronic medical record. You may view this report before your referring provider. If you have questions, please contact your health care provider. Indication: Dizziness. Bazzi palsy. Technique: MRI brain: Multiplanar multisequence MR imaging of the brain and orbits prior to and following intravenous administration of 23 mL Dotarem. MRA head: [id number] imaging. MRA neck: Rxua-pz-ihhilt and postcontrast imaging following intravenous administration of 23 mL Dotarem. Comparison: CTA head and neck 01/01/2025. Findings: MRI brain: The extra-ocular muscles and lacrimal glands are symmetric in size and enhancement. No intraorbital mass or edema. No signal abnormality or pathologic enhancement within the optic nerves. No mass effect on the optic chiasm. Thinning of the ocular lenses. The globes are symmetric in size Mild diffuse cerebral volume loss. No mass effect or midline shift. Small focal gliosis involving the high posterior left frontal lobe. Minimal FLAIR hyperintensities in the supratentorial white matter, typical for chronic microvascular ischemic changes. Punctate susceptibility anterior right temporal lobe may represent a chronic microhemorrhage or mineralization. No recent intracranial hemorrhage or pathologic extra-axial fluid collection. No diffusion restriction to suggest acute infarction. No pathologic intracranial enhancement. The major arterial flow voids of the skull base are preserved. Minimal ethmoid sinus mucosal thickening. Mastoid air cells are clear. MRA head: The internal carotid, middle cerebral, and anterior cerebral arteries are widely patent. The vertebral, basilar, and posterior cerebral arteries are widely patent. origin left posterior cerebral artery. No intracranial aneurysm or high-flow vascular malformation. MRA neck: The innominate and subclavian arteries are widely patent. The common carotid arteries are widely patent. Atherosclerotic irregularity of the proximal cervical internal carotid arteries without hemodynamically significant luminal narrowing. The left vertebral artery is dominant. The right vertebral artery origin is suboptimally assessed. The vertebral arteries are otherwise widely patent. Impression: MRI brain/orbits: 1. Unremarkable MRI of the orbits. 2. No acute intracranial abnormality. 3. Mild diffuse cerebral volume loss and minimal chronic microvascular ischemic changes. 4. Small focal gliosis involving the high posterior left frontal lobe may represent sequelae of remote ischemic or demyelinating insult. MRA head/neck: 1. Unremarkable MRA of the head. 2. Atherosclerotic irregularity of the proximal cervical internal carotid arteries without hemodynamically significant luminal narrowing. Dictated by Jovon Key MD @ 02/05/2025 3:14:00 PM (Electronically Signed)
== END 2025-02-05 12:32 | disposition home or self-care (01) ==
PROVIDERS: PCP Nurse Practitioner Gerontology; Visit Provider Nurse Practitioner Gerontology
DX: R42 Dizziness and giddiness (principal); G51.0 Bell's palsy; I67.82 Cerebral ischemia; I65.29 Occlusion and stenosis of unspecified carotid artery
CPT/HCPCS: 70543; 70544; 70549; 70553; A9575

== ENCOUNTER 2025-02-06 10:13 | Outpatient (CLI) | payer MEDICARE, SELFPAY | END 2025-02-06 10:14 | disposition home or self-care (01) | PROVIDERS: PCP Nurse Practitioner Gerontology; Visit Provider Family Medicine | DX: M54.16 Radiculopathy, lumbar region (principal); M51.369 Other intervertebral disc degeneration, lumbar region without mention of lumbar back pain or lower extremity pain | CPT/HCPCS: 62323; J0702; Q9966 ==

== ENCOUNTER 2025-02-13 10:51 | Outpatient (REF) | payer MEDICARE, SELFPAY ==
[2025-02-13 11:42] LABS: Chloride* 99 mmol/L (96-114); Potassium* 5.1 mmol/L (3.6-5.1); Sodium* 135 mmol/L (135-149)
[2025-02-13 11:43] LABS: Hematocrit* 35.9 % (33.0-51.0); Hemoglobin* 10.8 gm/dL (12.0-16.0); Immature Granulocytes Abs Auto 0.03 K/uL (0.00-0.30); Immature Granulocytes Pct Auto 0.3 %; Lymphocytes Absolute Auto 2.49 K/uL (0.90-2.90); Mean Corpuscular HGB Conc 30 gm/dL (32-36); Mean Corpuscular Hemoglobin 24 pg (26-34); Mean Corpuscular Volume 78 fL (80-100); RDW Coefficient of Variation % 16.5 % (11.5-15.5); Red Blood Count* 4.60 m/uL (4.00-5.20); White Blood Count* 8.79 K/uL (4.50-11.00)
[2025-02-13 11:44] LABS: Iron* 49 ug/dL (37-170)
[2025-02-13 11:45] LABS: Anion Gap 9 mEq/L (7-15); Blood Urea Nitrogen* 20 mg/dL (7-30); Calcium* 8.9 mg/dL (8.4-10.6); Carbon Dioxide* 27 mmol/L (20-32); Creatinine* 0.9 mg/dL (0.5-1.5); Estimated Glomerular Filt Rate 66 ml/min; Glucose* 174 mg/dL (60-115)
[2025-02-13 11:50] LABS: Slide Review Reflex No
[2025-02-13 11:54] LABS: Percent Iron Saturation 13 % (20-50); Total Iron Binding Capacity 387 ug/dL (265-497)
--- OUTSIDE RECORDS SUMMARY | 2025-02-14 00:22 | XMS_ITS | Clinical Summary ---
Author Organization [employer] [facility] Address [address] [place] [address] Care Team Providers Care Well Logging Mud Analysis Captain Name Role Phone [place], [facility] Specialty Unavail able Unavailable Roscoe Hernandez MD Unavailable [phone] Bárbara Tabor RN Unavailable [phone] Yudith Cowart RN Unavailable [phone] Beth Carmona MD Primary Care Provider + Allergies Active Allergy Reactions Criticality Noted Date Comments Aripiprazole Other - Describe In Comment Field 06/16/2010 Pt states she feels fatigue and has weight gain. Codeine Nausea Only 12/14/2007 Lactose Other - Describe In Comment Field 09/15/2011 farm or ranch animal caretaker told her she was allergic Menthol *Unknown [...] tablet 1 04/01/20 Active Deep Sea Nasal [place] 0.65 % nasal solution 04/21/20 23 Active [...] 2-5. 6 Tablet 1 09/28/19 25 Active aspirin-acetaminop hen-caffeine (Excedrin Migraine) 250-250-65 mgIndications:Head ache syndrome Take 1 Tablet by mouth every 6 hours if needed for Headache. Max acetaminophen dose: 4000mg in 24 hrs. 24 Tablet 1 02/08/20 25 Active Active Problems Problem Noted Date Diagnosed Date Immunizations reviewed and up to date 07/28/2018 DNR (do not resuscitate) 07/28/2018 ACP (advance care planning) 07/28/2018 Dementia with behavioral disturbance 05/16/2015 Overview (05/16/2015): 05/16/2015 Pt referred from [facility] for behaviors including: refusing medications, verbally abusive towards staff. Bipolar I Affective Disorder (per history) with manic psychosis from description 09/15/2013 Chronic hepatitis C without mention of hepatic c rossana 09/08/2005 Overview (01/29/2012): Followed at [facility] by Dr. Browning. Disease stable. Recommend [...] 008 Obesity, unspecified 09/09/2005 016 Overview (05/09/2014): [facility]. 05/09/2014 Body mass index is [...] 07/28/2018 Overview (01/29/2012): Followed by Dr. Dumont. [facility] Vitamin D deficiency 019 Encounters Date Type Department Care Team Description 02/07/2025 Telephone [facility] [address] [place] [address] Gee Orosco MD RETURNING CALL 02/06/2025 10:40 AM CDT Office Visit [facility] at [facility] [address] [place] [phone] Gee Orosco MD Procedure (L4-5 ILESI) 02/06/2025 Telephone [facility] [address] [place] [address] Gee Orosco MD Medication Management (excedrin migraine medication expected to be on hand 02/07/2025 ) 02/06/2025 Nurse Triage [facility] [address] [place] [address] Gee Orosco MD Headache 01/31/2025 Telephone [facility] [address] [place] [address] Gee Orosco MD Medication Management (Multiple) 01/30/2025 Telephone [facility] [address] [facility] [place] [phone] Beth Carmona MD Questions (meloxicam 15 mg tablet, and gabapentin (NEURONTIN) 100 mg capsule ) 01/30/2025 Telephone [facility] [address] [place] [address] Gee Orosco MD Questions (Questions about medication ) 01/22/2025 Telephone [facility] [address] [place] [address] Gee Orosco MD Appointment (back pain getting bad) 01/12/2025 Nurse Triage [facility] [address] [place] [address] Gee Orosco MD Headache; Back Pain 01/05/2025 Telephone [facility] [address] [place] [address] Gee Orosco MD Appointment Request 12/12/2024 3:20 PM CDT Ancillary Procedure [facility] [address] [place] [address] 12/12/2024 Travel 12/12/[address] [address] Romel Mcnair MD Recheck 12/05/2024 2:55 PM CDT - 12/05/2024 11:59 PM CDT Hospital Encounter [address] [place] [address] Gee Orosco MD Rein, Erik, PT 12/05/2024 Travel 11/30/2024 2:57 PM CDT - 11/30/2024 11:59 PM CDT Hospital Encounter [address] [address] Gee Orosco MD Rein, Erik, PT 11/30/2024 Travel 11/16/2024 2:53 PM CDT - 11/16/2024 11:59 PM CDT Hospital Encounter [address] [address] Gee Orosco MD Rein, Erik, PT 11/16/2024 Travel from Last 3 Months Immunizations Immunization [...] pure alcohol) 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 Gender Identity Not on file Sexual Orientation Not on file Obstetrics History Last Filed Vital Signs Vital Sign Reading Time Taken Comments Blood Pressure 130/64 09/27/2024 11:08 AM CDT Pulse 104 06/21/2024 2:51 PM KAPOK MACHINE OPERATOR Temperature 37.4 C (99.3 F) 06/21/2024 2:51 PM KAPOK MACHINE OPERATOR Respiratory Rate 20 12/17/2015 8:00 AM CDT Oxygen Saturation 94% 06/21/2024 2:51 PM KAPOK MACHINE OPERATOR Inhaled Oxygen Concentration - - Weight 111.5 kg (245 lb 12.8 oz) 2024 11:08 AM CDT Height 162.6 cm (5' 4.02) 02/28/2024 1 0:10 AM CDT Body Mass Index 42.17 02/28/2024 10:10 AM CDT Plan of Treatment Upcoming Encounters Date Type Department Care Team (Late st Contact Info) Description 02/14/2025 4:00 PM CDT Office Visit [facility] [address] [facility] [place] [address] Romel Mcnair MD [address] [place] [address] 03/05/2025 1:20 PM CDT Office Visit [facility] [address] [place] [address] Gee Orosco MD [address] [place] [address] Health Maintenance Due Date Last Done Comments [...] age 65+ Completed 2012 ([facility] Procedures Procedure Name Priority Date/Time Associated Diagnosis Comments AMB EPIDURAL STEROID INJECTION Routine 02/06/2025 8:04 AM CDT Lumbar facet arthropathy Lumbar radiculopathy Lumbar spondylosis XR MAMMO ANETTE BILAT SCREEN Routine 12/12/2024 [...] For Patients: As a result of the Cures Act, medical imaging exams and procedure reports are released immediately into your electronic medical record. You may view this report before your referring provider. If you have questions, please contact your health care provider. XR MAMMO ANETTE BILAT SCREEN [[id number]] CLINICAL HISTORY: This is an asymptomatic 79 y.o. patient. INDICATION FOR EXAM: Mammogram Screening. TECHNIQUE: CC and MLO views were obtained. This study was evaluated with the assistance of Computer-Aided Detection. Breast Tomosynthesis was used in interpretation. COMPARISON FILM: Yes 04/12/23 [facility] 02/24/21 [employer] FINDINGS: There are scattered areas of fibroglandular density. There are no dominant masses, suspicious micro calcifications or areas of architectural distortion. us Beth Carmona MD MAMMO Final Re sult * (ABNORMAL) HCV RNA RT-PCR,QNT [id number] (09/09/2009 1:47 PM CDT) HCV RNA RT-PCR Detected( A) [facility] NUMBER DETECTED 22,800,00 0 IU/mL [facility] SOURCE Blood [facility] Blood specimen (specimen) BLOOD SPECIMEN / Unknown 09/09/2009 1:47 PM CDT 09/09/2009 1:45 PM CDT Narrative [facility] - 09/16/2009 1:44 PM CDT Method: Benoit Taqman HCV Test us Ankit Sarmiento MD SEND OUTS Final Resu lt [facility] INTERNAL ZIP [phone] [address] from Last 3 Months or Most Recently Relevant to Health Maintenance Insurance MEDICARE PART A HB ONLY MEDICARE PART B HB ONLY MEDICA DUAL SOLUTIONS [facility] Advance Directives Documents on File Type Date Recorded Patient Waiter/Waitress First Class Expl anation POLST 04/12/2018 2:43 PM 08/04/17 Healthcare Directive 03/17/2013 10:05 AM E MERGENCY RESUSCITATION GUIDELINES, [facility], 03/17/13 * Full Code (Latest [...] 9:07 PM 02/01/2010 1:40 PM Care Teams Well Logging Mud Analysis Captain Relationship Specialty Start Date End Date Beth Carmona MD [address] [facility] [address] [place], [place] [id number] PCP - General Family Practice 12/23/23 [facility] Neurology 04/02/12 Roscoe Hernandez MD [address] [facility] [address] [place], [place] [id number] Provider Family Practice 07/09/19 Bárbara Tabor, RN [address] [facility] [address] [place], [place] [address] Bilingual School Psychologist - [facility] Registered Nurse 02/07/21 Yudith Cowart, RN [address] [facility] [address] [place], [place] [address] Bilingual School Psychologist - [facility] Registered Nurse 02/07/21
== END 2025-02-13 10:52 | disposition home or self-care (01) ==
LOC: NPINS 10:51
PROVIDERS: PCP Nurse Practitioner Gerontology; Visit Provider Nurse Practitioner Gerontology
DX: E11.40 Type 2 diabetes mellitus with diabetic neuropathy, unspecified (principal); D64.9 Anemia, unspecified; I10 Essential (primary) hypertension
CPT/HCPCS: 80048; 82728; 83036; 83540; 83550; 85025

== ENCOUNTER 2025-04-02 17:40 | Outpatient (CLI) | payer MEDICARE, SELFPAY | END 2025-04-02 17:41 | disposition home or self-care (01) | LOC: AMB 05-21 10:01 | PROVIDERS: PCP Nurse Practitioner Gerontology; Visit Provider Family Medicine | DX: R41.82 Altered mental status, unspecified (principal) | CPT/HCPCS: A0425; A0427 ==

== ENCOUNTER 2025-04-02 18:10 | Emergency (ER) | payer MEDICARE, SELFPAY ==
--- OUTSIDE RECORDS SUMMARY | 2013-11-03 09:11 | XMS_ITS | Continuity of Care Document ---
Author Organization [facility] Address [address] [address] [place] [address] Phone Care Team Providers Care Exterminator Helper Name Role Phone Unavailable Unavailable Unavailable Allergies, Adverse Reactions, Alerts Substance Reaction Status Criticality ziprasidone Nausea/vomiting Active No Informati on menthol Nausea/vomiting Active No Informati on aripiprazole Reaction Unknown Active No Informat ion metformin Diarrhea Active No Information METHOHEXITAL SODIUM Sleeplessness Active No Info rmation codeine Vomiting Active No Information Medications Medication Instructions Dosage Effective Dates (start - stop) Status Comments Lantus Solostar 100 unit/mL (3 mL) subcutaneous insulin pen inject 32 units by Subcutaneous route every day as per insulin protocol 32 units - Active acyclovir 400 mg tablet take 1 Tablet by oral route every day 400 MG - Active atorvastatin 80 mg tablet take 1 tablet by oral route every day 80 MG - Active Celebrex 100 mg capsule take 1 Tablet by Oral route 2 times every day 1 Tablet - Active divalproex ER 500 mg tablet,extended release 24 hr take 2 tablet by oral route every day 1000 MG - Active furosemide 20 mg tablet take 1 tablet by oral route every day 20 MG - Active paroxetine 40 mg tablet take 1 tablet by oral route every day 40 MG - Active Premarin 0.625 mg/gram vaginal cream apply (1G) by Topical route 2 times every week 1 G - Active trazodone 100 mg tablet take 2 tablet by ORAL route every day at bedtime 200 MG - Active hydrocodone 5 mg-acetaminophen 325 mg tablet take 1 tablet by oral route every 6 hours as needed for pain 1.00 tablet - Active Percocet 5 mg-325 mg tablet take 1 tablet by oral route every 6 hours as needed 1.00 tablet - Active Tylenol 8 Hour 650 mg tablet,extended release take 2 tablet by ORAL route every 8 hours 1300 MG - Active Magic Mouthwash Oral MOUTHWASH wash 5 milliliter by oral route 4 times every day - Active Metamucil oral powder take 1 teaspoon by Oral route every day 1 teaspoon - Active prochlorperazine maleate 10 mg tablet take 1 tablet by oral route every 8 hours as needed 10 MG - Active sumatriptan 25 mg tablet take 1 tablet by oral route every 3 hours once with fluids as early as possible after the onset of a migraine attack;may repeat after 2 hours if headache returns, not to exceed 200mgin 24hrs 25 MG - Active Procedures Procedure Date Offic/outpt E&m Estab Mod-hi 2 14 Routine Serum Collection 4004F G8421 G8427 G8482 4040F 3017F G8950 Bld Ct; Hg/pltlt Ct Auto/compl 14 Bilirubin; Direct Comp Metabolic Panel Prothrombin Time Offic/outpt E&m Estab Mod-hi 2 12 G8447 1036F G8417 4148F 4149F Offic/outpt E&m Estab Low-mod 0 Routine Serum Collection G8447 4148F 4149F Colorectal Ca Scrn Not Hi Risk 10 Offic/outpt E&m Estab Mod-hi 2 10 G8447 4148F 4149F Offic/outpt E&m Estab Low-mod 9 G8447 Bx Liver Needle; Percut Offic/outpt E&m New Mod-hi 45 9 Routine Serum Collection G8447 4148F 4149F Advance Directives Directive Yes / No Effective Date File Name No Information Encounters Encounter Description Practice Location Reason(s) For Visit Diagnoses Date Provider Providers Copied on Encounter [facility], [address] [address], [place], [id number], [place] tel:[phone] [facility] Non-alcoholic Fatty LiverHep C No Coma-chronic 4 No Information Eugenia Jacobs MD. tel:[phone] Offic/outpt E&m Estab Mod-hi 2 [facility], [address] [address], [place], [id number], [place] tel:[phone] [facility] Non-alcoholic Fatty LiverHep C No Coma-chronic 0- 4 No Information Referring Provider: Referral Self, USE FOR SELF REFERRALS. Offic/outpt E&m Estab Mod-hi 2 [facility], [address] [address], [place], [id number], [place] tel:[phone] [facility] Hep C (chief complaint) Hep C No Coma-chronic 0 2 No Information Referring Provider: Referral Self, USE FOR SELF REFERRALS. Offic/outpt E&m Estab Low-mod [facility], [address] [address], [facility] [place], [id number], [place] tel:[phone] [facility] Hepatitis C (chief complaint) Hep C No Coma-chronic 0 No Information Referring Provider: Ankit Sarmiento MD, [facility] [place], [address]. tel:[phone] [facility], [address] [address], [place], [id number], [place] tel:[phone] [facility] Colon Cancer ScreeningColo n Cancer Screening 0 You Snow. [address] [facility], [place], [place], [id number], [place]. tel:[phone] Referring Provider: Ankit Sarmiento MD, [address], [place], [address]. tel:[phone] Offic/outpt E&m Estab Mod-hi 2 [facility], [address] [address], [place], [place], [address], [place] tel:[phone] [facility] Hepatitis C (chief complaint) Hep C No Coma-chronic 0 No Information Referring Provider: Ankit Sarmiento MD, [address], [place], [address]. tel:[phone] Offic/outpt E&m Estab Low-mod [facility], [address] [address], [place], [place], [address], [place] tel:[phone] [facility] Hepatitis C (chief complaint) Fatty liver (chief complaint) liver biopsy follow up (chief complaint) Hep C No Coma-chronicN on-alcoholic Fatty Liver 9 No Information [facility], [address] [address], [place], [place], [address], [place] tel:[phone] [facility] No Information 9 No Information Offic/outpt E&m New Mod-hi 45 [facility], [address] [address], [place], [place], [id number], [place] tel:[phone] [facility] Hepatitis C (chief complaint) Hep C No Coma-chronicN on-alcoholic Fatty Liver 9 No Information Family History Family Member Type Diagnosis Age At Onset First degree family history Problem (finding) ulcerative colitis First degree family history Problem (finding) Irritable bowel disease First degree family history Problem (finding) No history of Crohn's First degree family history Problem (finding) D M Type II First degree family history Problem (finding) No history of Cancer, colon First degree family history Problem (finding) malignant neoplasm of lung First degree family history Problem (finding) peptic ulceration Payers Payer name Insurance type Covered republican ID Authortraciea tipillo(s) Medicare NGS [id number] [place] Medical Assistance [id number] Social History Type Description Quantity Date Captured Comments Alcohol Use Details Unknown Caffeine Use Details Unknown Tobacco Use Status No Information Smoking Status No Information Sex Female Chief Complaint And Reason For Visit No Information Reason For Referral Reason For Referral No Information History Of Present Illness Encounter Date Complaint History Of Prese nt Illness No Information Functional Status Date Functional Assessmen t No Information Instructions Date Instruction Additional Infor mation No Information Assessments Type Assessment Date assessment Non-alcoholic Fatty Liver assessment Hep C No Coma-chronic 4 Patient Care Teams Name Effective Dates (start - stop) Status Members No Information
--- OUTSIDE RECORDS SUMMARY | 2013-11-03 09:11 | XMS_ITS | Continuity of Care Document ---
Author Organization [facility] Address [address] [address] [place] [address] Phone Care Team Providers Care Erp Developer Name Role Phone Unavailable Unavailable Unavailable Allergies, [...] Diagnoses Date Provider Providers Copied on Encounter [facility], [address] [address], [place], [id number], [place] tel:[phone] [facility] Non-alcoholic Fatty LiverHep C No Coma-chronic 4 No Information Eugenia Jacobs MD. tel:[phone] Offic/outpt E&m Estab Mod-hi 2 [facility], [address] [address], [place], [id number], [place] tel:[phone] [facility] Non-alcoholic Fatty LiverHep C No Coma-chronic 0- 4 No Information Referring Provider: Referral Self, USE FOR SELF REFERRALS. Offic/outpt E&m Estab Mod-hi 2 [facility], [address] [address], [place], [id number], [place] tel:[phone] [facility] Hep C (chief complaint) Hep C No Coma-chronic 0 2 No Information Referring Provider: Referral Self, USE FOR SELF REFERRALS. Offic/outpt E&m Estab Low-mod [facility], [address] [address], [facility] [place], [id number], [place] tel:[phone] [facility] Hepatitis C (chief complaint) Hep C No Coma-chronic 0 No Information Referring Provider: Ankit Sarmiento MD, [facility] [place], [address]. tel:[phone] [facility], [address] [address], [place], [id number], [place] tel:[phone] [facility] Colon Cancer ScreeningColo n Cancer Screening 0 You Snow. [address] [facility], [address], [place], [place], [address], [place]. tel:[phone] Referring Provider: Ankit Sarmiento MD, [address], [place], [address]. tel:[phone] Offic/outpt E&m Estab Mod-hi 2 [facility], [address] [address], [place], [place], [address], [place] tel:[phone] [facility] Hepatitis C (chief complaint) Hep C No Coma-chronic 0 No Information Referring Provider: Ankit Sarmiento MD, [address], [place], [address]. tel:[phone] Offic/outpt E&m Estab Low-mod [facility], [address] [address], [place], [place], [id number], [place] tel:[phone] [facility] Hepatitis C (chief complaint) Fatty liver (chief complaint) liver biopsy follow up (chief complaint) Hep C No Coma-chronicN on-alcoholic Fatty Liver 9 No Information [facility], [address] [address], [place], [place], [id number], [place] tel:[phone] [facility] No Information 9 No Information Offic/outpt E&m New Mod-hi 45 [facility], [address] [address], [place], [place], [address], [place] tel:[phone] [facility] Hepatitis C (chief complaint) Hep C No [...] ulceration Payers Payer name Insurance type Covered libertarian ID Authortraciea tipillo(s) Medicare NGS [id number] [place] Medical Assistance [id number] Social History Type Description Quantity Date Captured [...]
[2025-04-02 18:12] VITALS: BP 162/80; PULSE 100; RESP 20; TEMP 36.3; O2SAT 92; BMI 42.2
--- OUTSIDE RECORDS SUMMARY | 2025-04-02 18:12 | XMS_ITS | Clinical Summary ---
Author Organization [employer] [facility] Address [address] [place] [address] Care Team Providers Care Transverse Abdominal Muscle Surgeon Name Role Phone [facility] Unavail able Unavailable Bárbara Tabor RN Unavailable [phone] Yudith Cowart RN Unavailable [phone] Beth Carmona MD Primary Care Provider + Allergies Active Allergy Reactions Criticality Noted Date Comments Aripiprazole Other - Describe In Comment Field 06/16/2010 Pt states she feels fatigue and has weight gain. Codeine Nausea Only 12/14/2007 Lactose Other - Describe In Comment Field 09/15/2011 manager intensive care told her she was allergic Menthol *Unknown [...] as covered per patient insurance 100 Each 5 01/26/20 19 Active insulin glargine (BASAGLAR KWIKPEN [...] MOUTH AT BEDTIME 90 tablet 1 04/01/20 19 Active Deep Sea Nasal [place] 0.65 % nasal solution 04/21/20 23 Active [...] hydrocortisone 1 % cream 12/21/19 24 Active azithromycin (Zithromax Z-Uday) 250 mg tabletIndications :Asthmatic bronchitis without complication, unspecified asthma severity, unspecified whether persistent (HC) Take 500 mg (2 tabs) by mouth on day 1, then 250 mg (1 tab) daily for days 2-5. 6 Tablet 1 09/28/19 25 Active aspirin-acetamino phen-caffeine (Excedrin Migraine) 250-250-65 mgIndications:Hea dache syndrome Take 1 Tablet by mouth every 6 hours if needed for Headache. Max acetaminophen dose: 4000mg in 24 hrs. 24 Tablet 1 02/08/20 25 Active ibuprofen (ADVIL; MOTRIN) 400 mg tablet 02/14/20 24 025 Discontin ued(*Med complete/ Regimen complete/ Level of care change) meloxicam 15 mg tabletIndications :Lumbar facet arthropathy TAKE 1 TABLET BY MOUTH ONCE DAILY 30 Tablet 04/18/20 24 025 Discontin ued(*Med complete/ Regimen complete/ Level of care change) HYDROcodone-aceta minophen (5-325 mg/tablet)Indicat ions:Lumbar facet arthropathy Take 1 Tablet by mouth 3 times daily if needed for Pain. Max acetaminophen dose: 4000 mg in 24 hrs. 36 Tablet 05/11/19 25 025 Discontin ued(*Med complete/ Regimen complete/ Level of care change) oxyCODONE (ROXICODONE) 5 mg immediate release tablet 06/02/19 25 025 Discontin ued(*Med complete/ Regimen complete/ Level of care change) Active Problems Problem Noted Date Diagnosed Date Immunizations reviewed and up to date 07/28/2018 DNR (do not resuscitate) 07/28/2018 ACP (advance care planning) 07/28/2018 Dementia with behavioral disturbance 05/16/2015 Overview (05/16/2015): 05/16/2015 Pt referred from [facility] for behaviors including: refusing medications, verbally abusive towards staff. Bipolar I Affective Disorder (per history) with manic psychosis from description 09/15/2013 Chronic hepatitis C without mention of hepatic c rossana 09/08/2005 Overview (01/29/2012): Followed at [facility] by Dr. Browning. Disease stable. Recommend [...] episode 2002 Pain medication agreement 07/27/2011 Overview (02/16/2025): Controlled substance contract signed 06/16/10, see scanned document ESPINOZA HARRIS, RN 07/27/2011 4:07 AM Recommend no benzodiazepines. Eugenia Jacobs M.D. 09/21/2012 7:17 PM Diagnosis Code replaced due to regulatory update Unspecified asthma(493.90) 01/30/2010 0 07/28/2018 Unspecified venous [...] 07/28/2018 Overview (01/29/2012): Followed by Dr. Dumont. [facility] Vitamin D deficiency 019 Encounters Date Type Department Care Team Description 03/22/2025 3:00 PM WET POUR SUPERVISOR - 03/22/2025 11:59 PM WET POUR SUPERVISOR Hospital Encounter [facility] [address] [address] Gee Orosco MD Rein, Erik, PT 03/22/2025 7:30 AM WET POUR SUPERVISOR Nurse/Clinic Staff Only [facility] [address] [place] [address] Testing (HST Return/Download.) 03/22/2025 Travel 03/21/2025 2:00 PM WET POUR SUPERVISOR Nurse/Clinic Staff Only [facility] [address] [place] [address] Testing (HST Setup) 03/21/2025 Procedure Only [facility] [place] [address] Romel Mcnair MD Results (HST) 03/20/2025 2:12 PM WET POUR SUPERVISOR - 03/20/2025 11:59 PM WET POUR SUPERVISOR Hospital Encounter [address] [address] Gee Orosco MD Rein, Erik, PT Lumbar spondylosis; Lumbar radiculopathy; Lumbar facet arthropathy; Cervical radiculopathy; Facet arthritis of cervical region; DDD (degenerative disc disease), cervical 03/20/2025 Travel 03/20/2025 Telephone [facility] [address] [facility] [address] Gee Orosco MD Medication Management 03/15/2025 Transcribe Orders [facility] [address] [address] Beth Carmona MD 03/05/2025 1:20 PM CDT Office Visit [facility] [address] [facility] [place] [address] Gee Orosco MD Musculoskeletal Problem (Follow up lumbar radiculopathy, L4-5 ILESI 02/06/25) 03/05/2025 Travel 02/14/2025 4:00 PM CDT Office Visit [facility] [place] [address] Romel Mcnair MD Sleep Consult 02/14/2025 Travel 02/07/2025 Telephone [facility] [address] [place] [address] Gee Orosco MD RETURNING CALL 02/06/2025 10:40 AM CDT Office Visit [facility] [address] [facility] [address] Gee Orosco MD Procedure (L4-5 ILESI) 02/06/2025 Telephone [facility] [address] [place] [address] Gee Orosco MD Medication Management (excedrin migraine medication expected to be on hand 02/07/2025 ) 02/06/2025 Nurse Triage [facility] [address] [place] [address] Gee Orosco MD Headache 01/31/[address] [address] Gee Orosco MD Medication Management (Multiple) 01/30/[address] [facility] [address] [place] [phone] Beth Carmona MD Questions (meloxicam 15 mg tablet, and gabapentin (NEURONTIN) 100 mg capsule ) 01/30/2025 Telephone [facility] [address] [place] [address] Gee Orosco MD Questions (Questions about medication ) 01/22/[address] [address] Gee Orosco MD Appointment (back pain getting bad) 01/12/2025 Nurse Triage [facility] [address] [place] [address] Gee Orosco MD Headache; Back Pain 01/05/2025 Telephone [facility] [address] [place] [address] Gee Orosco MD Appointment Request from Last 3 Months Immunizations Immunization Administration [...] on file Legal Sex Female 5:38 AM WET POUR SUPERVISOR Gender Identity Not on file Sexual Orientation Not on file Obstetrics History Last Filed Vital Signs Vital Sign Reading Time Taken Comments Blood Pressure 126/77 03/05/2025 1:22 PM CDT Pulse 90 03/05/2025 1:22 PM CDT Temperature 37.4 C (99.3 F) 06/21/2024 2:51 PM WET POUR SUPERVISOR Respiratory Rate 20 12/17/2015 8:00 AM CDT Oxygen Saturation 91% 03/05/2025 1:22 PM CDT Inhaled Oxygen Concentration - - Weight 113.9 kg (251 lb) 03/05/2025 1:22 PM CDT Height 162.6 cm (5' 4.02) 02/14/2025 3:55 PM CD T Body Mass Index 43.06 02/14/2025 3:55 PM CDT Plan of Treatment Upcoming Encounters Date Type Department Care Team (Late st Contact Info) Description 04/10/2025 3:00 PM WET POUR SUPERVISOR Appointment [address] [address] Cecilio Mancilla, PT [address] [place] [address] 04/11/2025 2:30 PM WET POUR SUPERVISOR Appointment [address] [address] Bart Licea, PT [address] [place] [address] 04/17/2025 3:00 PM WET POUR SUPERVISOR Appointment [address] [address] Cecilio Mancilla, PT [address] [place] [address] 04/24/2025 3:00 PM WET POUR SUPERVISOR Appointment [address] [address] Cecilio Mancilla, PT [address] [place], [place] [address] 05/01/2025 3:00 PM WET POUR SUPERVISOR Appointment [facility] [address] [facility] [place] [address] Cecilio Mancilla, PT [address] [facility] [place] [address] 05/08/2025 3:00 PM WET POUR SUPERVISOR Appointment [facility] [address] [facility] [place] [address] Cecilio Mancilla, PT [address] [facility] [place] [address] 06/26/2025 2:30 PM WET POUR SUPERVISOR Office Visit [facility] [address] [place] [address] Romel Mcnair MD [address] [place] [address] 07/05/2025 2:20 PM WET POUR SUPERVISOR Office Visit [facility] [address] [place] [address] Gee Orosco MD [address] [place] [address] Health Maintenance Due Date Last Done Comments [...] (1 - 1-dose 75+ series) 07/07/2022 Influenza Vaccine (#1) 2025 7, 02/10/2013, 04/02/2012, Additional history exists BMI (ht and wt on same day) for age 18+ 02/14/2026 02/14/2025, 02/28/2024, 01/11/2018, Additional history exists Hepatitis C screening for ag e 18-79 Completed 09/09/2009, 12/06/2008 DEXA/DXA scan for age 65+ Completed 2012 (Completed outside of [facility]) Procedures Procedure Name Priority Date/Time Associated Diagnosis Comments HOME SLEEP TEST TYPE 3 PORTABLE Routine 03/21/2025 11:59 PM WET POUR SUPERVISOR NICOL (obstructive sleep apnea) AMB EPIDURAL STEROID INJECTION Routine 02/06/2025 12:00 AM CDT Lumbar facet arthropathy Lumbar radiculopathy Lumbar spondylosis HCV RNA QUANT Routine 09/09/2009 1:47 PM CDT Chronic hepatitis C without mention of hepatic coma from Last 3 Months or Most Recently Relevant to Health Maintenance Results * HOME SLEEP TEST TYPE 3 PORTABLE (03/21/2025 11:59 PM WET POUR SUPERVISOR) Narrative Romel Mcnair MD - 03/21/2025 11:59 PM WET POUR SUPERVISOR Romel Mcnair MD 03/23/2025 8:03 AM Home Sleep Test Name: Valerie Martinez Location: [facility] Study notes: This is a single night home sleep apnea test. The study is performed in the context of a clinical suspicion for sleep apnea.. Valerie Martinez ( 1945) is studied using a T3 Device using nasal pressure transducer, thoracoabdominal respiratory impedence plethysmography belts, pulse oximetry, snore microphone and actigraphy for body position. The study is scored by a RPSGT and interpreted by a Diplomate of the [place] [employer]. Raw summary data is scanned into this report as a separate document. An epoch by epoch review of the data has been performed by the interpreting physician. Scored following the AASM Manual for the Scoring of Sleep and Associated Events, V3. Respiratory Event Index (LIDIA) Oxygen Desaturation Index (TAE) REI4% 10.8 ODI4%: 11.3 REI3% 18.2 ODI3%: 26.6 Supine LIDIA: 21.3 [place] Saturation 75 % Lateral LIDIA: 2.2 Time Below 88% 116.3 minutes Weight: Wt Readings from Last 1 Encounters: 03/05/25 113.9 kg (251 lb) Other data: Recording Duration: 479.9 minutes Time in Bed: 335.3 minutes Estimated sleep efficiency [%]: 96 % Oximeter Quality: 99.4 % Flow Quality: 100.0 % RIP Quality: 100.0 % Supine time: 278.7 minutes Average SpO2: 88.7 % Pulse Average: 91.7 bpm Additional Comments: None IMPRESSION: Obstructive Sleep Apnea (327.23, G47.33) Nocturnal Hypoxia (327.26, G47.34) RECOMMENDATIONS: - This is mild sleep apnea. Towards the end of the night the patient developed a significant drop in oxygen. It was not connected to position. - Hypoxia is noted. While this can be probe error, it may suggest underlying cardiopulmonary disease and clinical correlation is recommended. - Treatment for obstructive sleep apnea is recommended and CPAP would generally be considered first-line therapy for this severity of sleep apnea. Consider auto-titrating CPAP 5-20 cm. - Consider a referral to Health Weight Management for patients with a BMI > 30. - Follow-up with a provider to discuss results is recommended. - Patients should be advised to avoid critical tasks, such as driving, whenever drowsy. - Patients should try to achieve at least 7-8 hours of sleep on a consistent basis. - The LIDIA is a surrogate for AHI. For reimbursement and/or prior authorization purposes, it would be appropriate to list the LIDIA as an AHI when the latter is accepted, but not the former. Romel Mcnair M.D. Diplomate, Board of Sleep Medicine Recording Information Recording Date: 03/21/2025 Analysis Start Time: 2:11 AM Recording Tags: Analysis Stop Time: 7:46 AM Device Type: T3S Analysis Duration (TRT): 5h 35m Est. Total Sleep Time: 5h 33m Position and Analysis Time Duration Percentage Supine (in TST): 278.7 m 83.6 % Non-Supine (in TST): 54.6 m 16.4 % Upright (in TRT): 2 m 0.6 % Movement (in TST): 12.2 m 3.7 % Invalid Data (Excluded): 0 m 0 % Respiratory Indices Index Total Supine Non-supine Count Apneas + Hypopneas (REI3%): 18.2 /h 21.3 /h 2.2 /h 101 Apneas + Hypopneas (REI4%) 10.8 /h /h /h Apneas: 3.2 /h 3.9 /h 0 /h 18 Obstructive (OA): 3.1 /h 3.7 /h 0 /h 17 Mixed (MA): 0.2 /h 0.2 /h 0 /h 1 Central (CA): 0 /h 0 /h 0 /h 0 Hypopneas 3%: 14.9 /h 17.4 /h 2.2 /h 83 Hypopneas 4%: 0 /h 81 /h 2 /h 0 Respiration Rate (per m): 16.3 /m 16.4 /m 15.6 /m Percentage of Sleep Duration Snore: 38.6 % 33.7 % 64 % 128.8 m Flow Limitation: 0 % 0 % 0 % 0 m Average Snore Volume 70 dB Percent of time greater than 80dB: Percent of 58.8 % Oxygen Saturation (SpO2) Total Supine Non-supine Oxygen Desaturation Index (TAE): 26.6 /h 29.7 /h 11 /h Average SpO2: 88.7 % 88.4 % 90.3 % Minimum SpO2: 75 % 75 % 88 % SpO2 Duration < 90% 56.8 % (189.3m) 65.5 % 12.5 % SpO2 Duration <= 88% 34.9 % (116.3m) 41.6 % 0.8 % Pulse in TST Quality Average: 91.7 bpm Oximeter: 99.4 % Maximum: 114 bpm Nasal Cannula: 100 % Minimum: 80 bpm Abdomen RIP: 100 % Duration < 40 bpm: 0 m Thorax RIP: 100 % Duration > 100 bpm: 10.3 m us Romel Mcnair MD SLEEP CENTER Final Result * AMB EPIDURAL STEROID INJECTION (02/06/2025 12:00 AM CDT) us Gee Orosco MD NEUROLOGY ORD Final Resu lt * (ABNORMAL) HCV RNA RT-PCR,QNT [id number] (09/09/2009 1:47 PM CDT) HCV RNA RT-PCR Detected( A) [facility] NUMBER DETECTED 22,800,00 0 IU/mL [facility] SOURCE Blood [facility] Blood specimen (specimen) BLOOD SPECIMEN / Unknown 09/09/2009 1:47 PM CDT 09/09/2009 1:45 PM CDT Narrative [facility] - 09/16/2009 1:44 PM CDT Method: Benoit Taqman HCV Test us Ankit Sarmiento MD SEND OUTS Final Resu lt [facility] [place]NAL ZIP [address] [address] from Last 3 Months or Most Recently Relevant to Health Maintenance Insurance MEDICARE PART A HB ONLY MEDICARE PART B HB ONLY MEDICA [employer] [facility] [place] Documents on File Type Date Recorded Patient Personalized Living Assistant Expl anation POLST 04/12/2018 2:43 PM 08/04/17 Healthcare Directive 03/17/2013 10:05 AM E [employer], [facility], 03/17/13 * Full Code (Latest Code [...] 9:07 PM 02/01/2010 1:40 PM Care Teams Transverse Abdominal Muscle Surgeon Relationship Specialty Start Date End Date Beth Carmona MD [address] [place] [address] PCP - General Family Practice [facility]23[facility]23 [facility] 04/[facility]12 Bárbara Tabor RN [facility] [address] [address] Hand Brush Filler - [facility] Registered Nurse 02/07/21 Yudith Cowart, RN [address] [address] Hand Brush Filler [place] [facility] Registered Nurse 02/07/21
[2025-04-02 20:37] LABS: Glucose, Point-of-Care* 314 mg/dl (60-115)
[2025-04-02] MEDS: IPRAT-ALBUT 0.5-2.5 MG/3 ML NEB 1 NEB IH (20:40)
--- NOTE | 2025-04-02 21:03 | ED.GENADULT ---
HPI - General Adult General Date Seen: 04/02/25 Chief complaint: Unspecified Complaint, Adult Stated complaint: weakness Time Seen by Provider: 04/02/25 20:27 Source: patient and family Mode of arrival: ambulatory Limitations: no limitations History of Present Illness HPI narrative: Patient is a very nice 79-year-old female who is from the nursing/assisted living next door, [facility] she is feeling weak today, she just recently got over COVID a last 7 days, says she has cramping in her legs. No chest pain no shortness of breath, denies a fever, maybe slight nausea, but no vomiting she is eating and drinking normally. Presents here to the emergency room department as she was told that her blood sugar was very low at the half-way, 80, but EMS got her a 253. We got her at 314, clearly there meter is not working. She reports that she has not received her insulin as she is a diabetic today, cause her sugars were low. History of diabetes, history of hyperlipidemia, history of sleep disorder, history of chronic pain history of GE reflux, history of dizziness, Related Data Home Medications ?Medication ?Instructions ?Recorded ?Confirmed acetaminophen 500 mg tablet 500 mg BID 06/04/24 albuterol sulfate 90 mcg/actuation 1 inh inhalation PRN 06/04/24 aerosol inhaler aspirin 81 mg chewable tablet 1 tab DAILY 06/04/24 atorvastatin 40 mg tablet 40 mg DAILY 06/04/24 dulaglutide 0.75 mg/0.5 mL mg subcut 06/04/24 subcutaneous pen injector (Trulicity) gabapentin 100 mg capsule 100 mg BID 06/04/24 guaifenesin 600 mg tablet, mg PO 06/04/24 extended release 12 hr (Mucus Relief ER) insulin lispro 100 unit/mL subcut 06/04/24 subcutaneous pen (Humalog KwikPen (U-100) Insulin) meloxicam 15 mg tablet 15 mg DAILY 06/04/24 metformin 750 mg tablet,extended 750 mg PO DAILY 06/04/24 01/01/25 release 24 hr omeprazole 20 mg capsule,delayed 20 mg DAILY 06/04/24 release oxycodone 5 mg tablet mg 06/04/24 peg 400-propylene glycol 0.4 %-0.3 drp ophthalmic (eye) 06/04/24 % eye gel drops (Systane Gel) ibuprofen 400 mg tablet (IBU) 400 mg PO Q8H 01/01/25 01/01/25 insulin glargine 100 unit/mL (3 40 unit subcut DAILY 01/01/25 01/01/25 mL) subcutaneous pen (Lantus Solostar U-100 Insulin) meclizine 12.5 mg tablet 12.5 mg PO Q12H PRN dizziness 01/01/25 01/01/25 ramelteon 8 mg tablet 8 mg PO QPM 01/01/25 01/01/25 risperidone 0.5 mg tablet 0.5 mg PO DAILY 01/01/25 01/01/25 (Risperdal) risperidone 1 mg tablet 1 mg PO QPM 01/01/25 01/01/25 sertraline 100 mg tablet 200 mg PO DAILY 01/01/25 01/01/25 Previous Rx's ?Medication ?Instructions ?Recorded prednisone 20 mg tablet 60 mg (3 x 20 mg) PO DAILY 6 days 06/04/24 #18 tabs valacyclovir 1 gram tablet 1,000 mg PO TID 7 days #21 tabs 06/04/24 Allergies Allergy/AdvReac Type Severity Reaction Status Date / Time amoxicillin Allergy Mild Verified 04/02/25 18:15 ziprasidone Allergy Mild Verified 04/02/25 18:15 aripiprazole (From Abilify) Allergy Verified 04/02/25 18:15 codeine Allergy Verified 04/02/25 18:15 olanzapine (From Zyprexa) Allergy Verified 04/02/25 18:15 trazodone Allergy Verified 04/02/25 18:15 Review of Systems Status of ROS: Reports: 10 or more systems reviewed and unremarkable except as noted in History and below [facility] Social History Smoking Status: Former smoker Do you use any of these nicotine containing products: None How often do you have a drink containing alcohol: never How often do you have six or more drinks on one occasion: Never AUDIT-C Alcohol total score: 0 Non-prescribed substance use: denies use service: No Exam Narrative: Exam Narrative: I find her conversant well, in room 1, she is in no apparent distress, pupils equal round reactive to light no scleral icterus redness TMs normal oropharynx normal her neck is supple chest is good air entry bilaterally mild wheezing is noted expiratory bilaterally. noted heart sounds are normal her abdomen is soft there is no guarding her legs show no significant pitting edema, although she does have some limb edema noted. She is able to walk around the room normally. There is no tenderness to palpation. Const: Vital Signs, click to edit/add: Vital Signs - 24 hr 04/02/25 18:12 04/02/25 22:00 Temperature 97.3 F L 98.2 F Pulse Rate [Pulse Oximeter] 100 83 Respiratory Rate 20 20 Blood Pressure [Ri ght Upper Arm] 162/80 H 151/71 H Pulse Oximetry 92 94 Oxygen Delivery Me thod Room Air Room Air Documenting provider has reviewed patient's vital signs: yes Course Course ED Course: Patient did well was reassured that her sugar was high, and the monitor was wrong we did give her her dose of Lantus tonight before she left, she can take or other oral medications when she went home. Her laboratory work was slightly hemolyzed, which led to a slightly elevated potassium level. Overall I feel at 5.4 she would be reasonable to go home. She will return if she develops any other further symptoms such as fevers chills chest pain leg swelling, or shortness of breath. Vital Signs Vital signs: Initial Vital Signs Temperature 97.3 F L 04/02/25 18:12 Temperature Source Temporal Artery Scan 04/02/25 18:12 Pulse Rate 100 04/02/25 18:12 Pulse Strength 3+ Normal 04/02/25 18:12 Respiratory Rate 20 04/02/25 18:12 Blood Pressure 162/80 H 04/02/25 18:12 Blood Pressure Mean 107 H 04/02/25 18:12 Blood Pressure Position Sitting 04/02/25 18:12 Pulse Oximetry 92 04/02/25 18:12 Oxygen Delivery Method Room Air 04/02/25 18:12 Vital Signs Temperature 97.3 F L 04/02/25 18:12 Pulse Rate 100 04/02/25 18:12 Respiratory Rate 20 04/02/25 18:12 Blood Pressure 162/80 H 04/02/25 18:12 Pulse Oximetry 92 04/02/25 18:12 Oxygen Delivery Method Room Air 04/02/25 18:12 Temperature 98.2 F 04/02/25 22:00 Pulse Rate 83 04/02/25 22:00 Respiratory Rate 20 04/02/25 22:00 Blood Pressure 151/71 H 04/02/25 22:00 Pulse Oximetry 94 04/02/25 22:00 Oxygen Delivery Method Room Air 04/02/25 22:00 Medications Administered Medications: Discontinued Medications Generic Name Dose Route Start Last Admin Trade Name Cuate PRN Reason Stop Dose Admin Albuterol/Ipratropium 1 neb 04/02/25 22:13 04/02/25 20:40 Iprat-Albut 0.5-2.5 Mg/3 Ml Neb IH 04/02/25 22:14 1 neb ONCE ONE Administration Insulin Glargine 40 unit 04/02/25 21:59 04/02/25 22:10 Insulin Glargine,Hum.Rec.Anlog 100 Unit/Ml Insuln.Pen SUBCUT 04/02/25 22:00 40 unit ONCE ONE Administration Medical Decision Making MDM Narrative Medical decision making narrative: Life-threatening differential diagnosis considered include stroke, coronary artery disease, pneumonia, and heart failure. Other differential diagnosis include but are not limited to electrolyte imbalances, anemia, medication reactions, and urinary tract infection I discussed with her that we will do a basic metabolic profile we did check her sugar, and we give her a DuoNeb, if these all are okay I think we can send her back to the half-way. Medical Records Medical records reviewed: Yes I reviewed the patient's medical records Medical records narrative: Reviewed previous visit here. Lab Data Lab results reviewed: Yes I reviewed the patient's lab results Labs: Lab Results 04/02/25 04/02/25 Range/Units 20:36 20:44 Sodium 134 L (135-149) mmol/L Potassium 5.4 H (3.6-5.1) mmol/L Chloride 102 (96-114) mmol/L Carbon Dioxide 24 (20-32) mmol/L Anion Gap 8 (7-15) mEq/L BUN 21 (7-30) mg/dL Creatinine 1.0 (0.5-1.5) mg/dL Estimated Creat Clear 40.68 Estimated GFR 58 ml/min Glucose 303 H (60-115) mg/dL Calcium 8.8 (8.4-10.6) mg/dL POC Glucose 314 H (60-115) mg/dl Discharge Plan Discharge Clinical Impression: Acute hyperglycemia, Weakness, History of COVID-19 Patient Disposition: Home, Self-Care Condition: Stable Instructions: Weakness (ED) Additional Instructions: More important thing is here they need to fix the glucose scanner over at the nursing facility. Will give you a dose of the insulin here. Your Lantus. And then discharge home. Activity Level: Light activity Discharge Diet: Diabetic Prescriptions: No Action atorvastatin 40 mg tablet 40 mg DAILY meloxicam 15 mg tablet 15 mg DAILY acetaminophen 500 mg tablet 500 mg BID Patient Comments: [NO ORIGINAL SIG] omeprazole 20 mg capsule,delayed release(DR/EC) 20 mg DAILY aspirin 81 mg tablet,chewable 1 tab DAILY gabapentin 100 mg capsule 100 mg BID Patient Comments: [NO ORIGINAL SIG] albuterol sulfate 90 mcg/actuation HFA aerosol inhaler 1 inh INHALATION PRN Patient Comments: [NO ORIGINAL SIG] oxycodone 5 mg tablet insulin lispro [Humalog KwikPen Insulin] 100 unit/mL insulin pen subcut metformin 750 mg tablet extended release 24 hr 750 mg PO DAILY Systane Gel 0.4-0.3 % drops,gel ophthalmic (eye) guaifenesin [Mucus Relief ER] 600 mg tablet extended release 12hr PO Patient Comments: [NO ORIGINAL SIG] Trulicity 0.75 mg/0.5 mL pen injector subcut prednisone 20 mg tablet 60 mg PO DAILY 6 Days Qty: 18 0RF valacyclovir 1 gram tablet 1,000 mg PO TID 7 Days Qty: 21 0RF ibuprofen [IBU] 400 mg tablet 400 mg PO Q8H insulin glargine [Lantus Solostar U-100 Insulin] 100 unit/mL (3 mL) insulin pen 40 unit subcut DAILY ramelteon 8 mg tablet 8 mg PO QPM risperidone [Risperdal] 0.5 mg tablet 0.5 mg PO DAILY risperidone 1 mg tablet 1 mg PO QPM sertraline 100 mg tablet 200 mg PO DAILY meclizine 12.5 mg tablet 12.5 mg PO Q12H PRN (Reason: dizziness) Follow Up/Referrals: Ellen Us DNP, RN [Primary Care Provider, Family Practice] [facility] Inst[facility]
[2025-04-02 21:09] LABS: Chloride* 102 mmol/L (96-114); Sodium* 134 mmol/L (135-149)
[2025-04-02 21:33] LABS: Potassium* 5.4 mmol/L (3.6-5.1)
[2025-04-02 21:36] LABS: Blood Urea Nitrogen* 21 mg/dL (7-30); Creatinine* 1.0 mg/dL (0.5-1.5); Est. Creatinine Clearance* 40.68; Estimated Glomerular Filt Rate 58 ml/min
[2025-04-02 21:37] LABS: Anion Gap 8 mEq/L (7-15); Calcium* 8.8 mg/dL (8.4-10.6); Carbon Dioxide* 24 mmol/L (20-32); Glucose* 303 mg/dL (60-115)
[2025-04-02 22:00] VITALS: BP 151/71; PULSE 83; RESP 20; TEMP 36.8; O2SAT 94
== END 2025-04-02 22:31 | disposition home or self-care (01) ==
PROVIDERS: Emergency Provider Family Medicine; PCP Nurse Practitioner Gerontology
DX: E11.65 Type 2 diabetes mellitus with hyperglycemia (principal); Z79.4 Long term (current) use of insulin; Z79.84 Long term (current) use of oral hypoglycemic drugs; Z86.16 Personal history of COVID-19
CPT/HCPCS: 36415; 80048; 82947; 99284

== ENCOUNTER 2025-05-08 09:11 | Outpatient (REF) | payer MEDICARE, SELFPAY ==
[2025-05-08 10:49] LABS: Chloride* 103 mmol/L (96-114); Potassium* 4.7 mmol/L (3.6-5.1); Sodium* 137 mmol/L (135-149)
[2025-05-08 10:52] LABS: Anion Gap 9 mEq/L (7-15); Blood Urea Nitrogen* 19 mg/dL (7-30); Calcium* 9.1 mg/dL (8.4-10.6); Carbon Dioxide* 25 mmol/L (20-32); Creatinine* 0.8 mg/dL (0.5-1.5); Estimated Glomerular Filt Rate 76 ml/min; Glucose* 113 mg/dL (60-115)
--- OUTSIDE RECORDS SUMMARY | 2025-05-09 00:16 | XMS_ITS | Clinical Summary ---
Author Organization [facility] Address [address] [place] [address] Care Team Providers Care Oracle Engineer Name Role Phone [place] Unavail able Unavailable Bárbara Tabor RN Unavailable [phone] Yudith Cowart RN Unavailable [phone] Beth Pierre MD Primary Care Provider + Allergies Active AllergyReactionsCriticalityNoted DateCommentsAripiprazoleOther - Describe In Comment Field06/16/2010 Pt states she feels fatigue and has weight gain. CodeineNausea Only12/14/2007LactoseOther - Describe In Comment Field09/15/2011 pet care technician told her she was allergic Menthol*Ysmbdso7011/20/20107092MldsxdixeBinhgszq13/02/2006MethohexitalOther - Describe In Comment Field09/08/2005 woke up during tooth extraction Olanzapine*Vnatcnb1001/23/2014 Pt's daughter reports unk reaction to zyprexa- see notes from 01/18/14 for further detail OxycodoneGI Upset09/27/2024Trazodone*Jtouaqv1203/02/2018Ziprasidone*Unknown 05/11/2014Ziprasidone HclDiarrhea,Fever,Drrkqupb04/17/2010 WBC dropped per patient, fatigue Medications MedicationSigDispense QuantityRefillsLast FilledStart DateEnd DateStatus blood-glucose meter Indications:Type 2 diabetes mellitus without complication, without long-term current use of insulin (HC)Dispense meter, test strips, lancets covered by pt ins. 1 Device 11/26/2017Active medication order composer GNP [employer] Vboyi247412/31/2017Active MAPAP 325 mg tablet TAKE TWO TABLETS BY MOUTH EVERY 4 HOURS NEEDED FOR PAIN OR FEVER NOT TO EXCEED 3GM/57QYE4526Active BISAC-EVAC 10 mg suppository INSERT 1 SUPPOSITORY RECTALLY TWICE DAILY NEEDED FOR JWKOLVCCANHR2660/19/2018 Active VITAMIN D 1,000 unit tablet TAKE ONE TABLET BY MOUTH DAILY IN THE [id number] calcium carbonate (TUMS) 200 mg calcium (500 mg) chewable tablet Indications:Heartburn2 tabs Three times a day prn heartburn 30 tablet 01/11/2018Active gabapentin (NEURONTIN) 100 mg capsule Indications:neuropathic painTake 2 capsules by mouth 2 times daily. Active sennosides (SENNA) 8.6 mg tablet Indications:Constipation, unspecified constipation type1-2 po daily prn constipation 30 tablet 01/11/2018Active lancets (EASY TOUCH LANCETS) 26 gauge [facility] Indications:Type 2 diabetes mellitus with diabetic neuropathy, without long-term current use of insulin (HC)Dispense item covered by pt ins. E11.9 NIDDM type II -3 x per week 100 Each Active aspirin (ECOTRIN) 81 mg enteric coated tablet Indications:Type 2 diabetes mellitus with diabetic neuropathy, without long-term current use of insulin (HC)Take 1 tablet by mouth once daily with a meal.0 10/25/2018Active risperiDONE (RISPERDAL) 1 mg tablet Indications:Dementia with behavioral disturbance, unspecified dementia typeTAKE 1 TAB BY MOUTH IN THE AFTERNOON FOR MOOD DISORDER 30 tablet Active atorvastatin (LIPITOR) 20 mg tablet Indications:Hyperlipidemia, unspecified hyperlipidemia typeTake 1 tablet by mouth once daily. 30 tablet Active lancets (UNISTIK 3 COMFORT LANCET) Indications:Type 2 diabetes mellitus with diabetic neuropathy, without long-term current use of insulin (HC)Test twice daily Dispense as covered per patient insurance 100 Each Active insulin glargine (BASAGLAR KWIKPEN U-100 INSULIN) 100 unit/mL (3 mL) pen Indications:Type 2 diabetes mellitus with diabetic neuropathy, without long-term current use of insulin (HC)Inject 10 Units subcutaneous before bedtime. 30 mL Active sertraline (ZOLOFT) 50 mg tablet Indications:AnxietyTake 1/2 tablet by mouth daily for 7 days, then 1 daily for mood. 30 tablet Active NOVOFINE AUTOCOVER 30 gauge x 1/3 needle Indications:Type 2 diabetes mellitus with diabetic neuropathy, without long-term current use of insulin (HC)USE DIRECTED ONCE DAILY WITH INSULIN PEN 100 Each Active ramelteon (ROZEREM) 8 mg tablet Indications:Insomnia, unspecified typeTAKE 1 TAB BY MOUTH AT BEDTIME 90 tablet Active Deep Sea Nasal [place] 0.65 % nasal solution 04/21/2023ctive omeprazole (PRILOSEC) 20 mg Delayed-Release capsule Take 20 mg by mouth once daily before a meal.08/16/2023ctive Banophen 25 mg capsule 12/20/2023ctive diclofenac topical (VOLTAREN) 1 % gel 01/24/2024ctive nystatin powder (MYCOSTATIN) powder 10/05/2023ctive Hemorrhoidal,PE-min oil-joann, 0.25-14-74.9 % rectal ointment 08/26/2023ctive chlorhexidine (PERIDEX) 0.12 % solution 02/21/2024ctive tolnaftate 1% powder (TINACTIN) 1 % powder 02/14/2024ctive HumaLOG KwikPen Insulin 100 unit/mL inpn pen 01/30/2024ctive hydrocortisone 1 % cream 12/21/2023ctive azithromycin (Zithromax Z-Uday) 250 mg tablet Indications:Asthmatic bronchitis without complication, unspecified asthma severity, unspecified whether persistent (HC)Take 500 mg (2 tabs) by mouth on day 1, then 250 mg (1 tab) daily for days 2-5. 6 Tablet 5Active nbrbqvn-tompnyiycbrld-gxaatcie (Excedrin Migraine) 250-250-65 mg Indications:Headache syndromeTake 1 Tablet by mouth every 6 hours if needed for Headache. Max acetaminophen dose: 4000mg in 24 hrs. 24 Tablet 5Active lidocaine 5 % topical patch Indications:Lumbar spondylosisApply on dry, clean, hairless skin. Apply 1 patch to painful area of skin for up to to 12 hours within 24 hour period. 30 Patch 5Active CPAP Indications:NICOL (obstructive sleep apnea)RESMED CPAP (E0601) machine for home use at pressure: 5-15cmw, Choice of mask (A7030 or A7034) w/full face cushion (A7031) x1/mo, nasal cushion (A7032) x2/mo, or nasal pillows (A7033) x 2/mo; Length of Need: 99 months; Frequency of use: Daily 1 Each 5Active Active Problems ProblemNoted DateDiagnosed DateOSA 03/21/2025 AHI-Immunizations reviewed and up to date07/28/2018DNR (do not resuscitate)07/28/2018ACP (advance care planning)07/28/2018Dementia with behavioral zraqprfulyh61/07/2016 Overview (05/16/2015): 05/16/2015 Pt referred from [facility] for behaviors including: refusing medications, verbally abusive towards staff. Bipolar I Affective Disorder (per history) with manic psychosis from description 09/15/2013Chronic hepatitis C without mention of hepatic coma09/08/2005 Overview (01/29/2012): Followed at [facility] by Dr. Browning. Disease stable. Recommend annual lfts. She declines treatment with interferon and ribavirin Osteoarthrosis-Multiple Sites09/08/2005 Overview (05/09/2014): back and neck. Celebrex Insomnia, knjoonelere57/02/2006Other and unspecified goeardcmzvgrsv18/02/2006 Diabetes mellitus type 2 with neuropathy, utlrrblpza30/13/2003 Overview (05/16/2015): Since 2002. Lantus 8 units at bedtime. HEMOGLOBIN A1C MONITORING (POCT) Date Value 05/16/2015 6.2 % 10/07/2012 5.8 % Total Hgb 06/09/2011 6.1 % Cardiomegaly Overview (01/29/2012): Normal Lexiscan study with underlying artifact with left ventricular ejection fraction of 67%. July 2010 Resolved Problems ProblemNoted DateDiagnosed DateResolved DateDementia with behavioral disturbance Dementia with behavioral ppgyryfpoqc07 Elevated TSH, jczmsjubeu63 Overview (05/16/2015): TSH (uIU/mL) Date Value 05/16/2015 5.69* No treatment necessary. Wjrtcuztvwiyhhusjn82/31/201403/21/2019 Overview (05/09/2014): Atorvastatin. Benign essential HTN Overview (04/17/2014): On Lasix 20 mg daily. Rule out Paranoid personality gacrlmhx72Encounter for long- term (current) use of ijaxmipenzj21Chronic low back pain Other bipolar pvoeqejri56/19/Lichen planus 10/10/Gastric ulcer Overview (08/12/2012): EGD 08/2012 benign ulcers Vaginitis and vulvovaginitis, ntjrzpytkhe25Genital herpes, eulxctvdtnf62 Overview (05/16/2015): Acyclovir suppression Bipolar disorder in fsbfvjuxr13 Overview (07/30/2011): Last episode 2002 Pain medication vzwcpkypp14 Overview (02/16/2025): Controlled substance contract signed 06/16/10, see scanned document ESPINOZA HARRIS RN 07/27/2011 4:07 AM Recommend no benzodiazepines. Eugenia Jacobs M.D. 09/21/2012 7:17 PM Diagnosis Code replaced due to regulatory update Unspecified asthma(493.90)Unspecified venous (peripheral) zsyfjislftrud70Tobacco use jnjsswdi15 Obesity, iddblpcrier40 Overview (05/09/2014): [facility]. 05/09/2014 Body mass index is 39.39 kg/(m^2). Bipolar I disorder, most recent episode (or current) kjpbplgbehp34/02/2006 07/30/2011 Overview (09/08/2005): dr samara bal Other and unspecified alcohol dependence, unspecified drinking behavior Overview (09/08/2005): recovered since 1983 Hypkxbianvx26/02/Calculus of gallbladder without mention of cholecystitis or qzayfimbrtf71Lumbago Overview (09/08/2005): referred physicians neck and back 06/14 Tbniclosshzq08/13/0440Qioodcayvbwj70/07/6938Vbnyhunqoapjn22/21/2019Migraine 07/28/2018 Overview (01/29/2012): Followed by Dr. Dumont. [facility] Vitamin D phaduvmsyi86/21/2019 Encounters DateTypeDepartmentCare BjuaHnvswfsrqjw27/30/2025 2:58 PM OFFICE SPECIALIST - 05/08/2025 11:59 PM CSTHospital Encounter [facility] [address] [address] Gee Orosco MD Rein, Erik, PT Kmmbgkq4205/08/20253060Cvbomm12/27/2025Telephone [address] [place] [address] Jorge Forde, DO Yhxkkagjguc46/ 2:54 PM OFFICE SPECIALIST - 05/01/2025 11:59 PM CSTHospital Encounter [address] [address] Gee Orosco MD Rein, Erik, PT 04/30/2025 11:30 AM CSTOffice Visit [facility] [address] [place] [address] Romel Mcnair MD Sleep Follow-up04/30/20254795Oylsvu52/19/2025Telephone [facility] [address] [place] [address] Gee Orosco MD Pain (Back pain)04/27/2025Nurse Triage [facility] [address] [place] [address] Gee Orosco MD Back Pain04/24/2025 2:56 PM OFFICE SPECIALIST - 04/24/2025 11:59 PM CSTHospital Encounter [facility] [address] [address] Gee Orosco MD Rein, Erik, PT 04/24/20259572Joitlr99/09/2025 2:55 PM OFFICE SPECIALIST - 04/17/2025 11:59 PM CSTHospital Encounter [address] [address] Gee Orosco MD Rein, Erik, PT 04/17/20251783Vxptqw84/02/2025Telephone [facility] [address] [place] [address] Gee Orosco MD Prior Authorization (lidocaine 5 % topical patch APPROVED 03/13/2025-04/12/2026) 04/03/2025Nurse Triage [facility] [address] [place] [address] Gee Orosco MD Back Pain04/03/2025Telephone [facility] [address] [place] [address] Gee Orosco MD Questions (Lidocaine Patches 5%)03/22/2025 3:00 PM OFFICE SPECIALIST - 03/22/2025 11:59 PM OFFICE SPECIALIST Hospital Encounter [address] [address] Gee Orosco MD Rein, Erik, PT 03/22/2025 7:30 AM CSTNurse/Clinic Staff Only [facility] [address] [place] [address] Testing (HST Return/Download.)03/22/20257034Dlgytt09/12/2025 2:00 PM CSTNurse/Clinic Staff Only [facility] [address] [place] [address] Testing (HST Setup)03/21/2025Procedure Only [facility] [address] [place] [address] Romel Mcnair MD Results (HST)03/20/2025 2:12 PM OFFICE SPECIALIST - 03/20/2025 11:59 PM CSTHospital Encounter [address] [address] Gee Orosco MD Rein, Erik, PT Lumbar spondylosis; Lumbar radiculopathy; Lumbar facet arthropathy; Cervical radiculopathy; Facet arthritis of cervical region; DDD (degenerative disc disease), fdwnzexb01/11/5772Btiagz96/11/2025Telephone [facility] [address] [place] [address] Gee Orosco MD Medication Fcgxksmmej49/06/2025Transcribe Orders [facility] - [address] [address] Beth Carmona MD 03/05/2025 1:20 PM CDTOffice Visit [facility] [address] [place] [address] Gee Orosco MD Musculoskeletal Problem (Follow up lumbar radiculopathy, L4-5 ILESI 02/06/25) 03/05/20255475Jgmtce65/08/2025 4:00 PM CDTOffice Visit [facility] [address] [place] [address] Romel Mcnair MD Sleep Mbtuvfr8402/14/20258338Ddsfvd76/01/2025Telephone [facility] [address] [place] [address] Gee Orosco MD RETURNING CALL02/06/2025 10:40 AM CDTOffice Visit [facility] [address] [place] [address] Gee Orosco MD Procedure (L4-5 ILESI)02/06/2025Telephone [facility] [address] [place] [address] Gee Orosco MD Medication Management (excedrin migraine medication expected to be on hand 02/07/2025 )02/06/2025Nurse Triage [facility] [address] [place] [address] Gee Orosco MD Headachefrom Last 3 Months Immunizations ImmunizationAdministration DatesNext DueInactivated Polio Uxtgknb9206/15/1991 Influenza A (H1N1), Inactivated (Age >=3 Years)05/13/2009Influenza, IIV3 (Age >=3 years)02/10/2013,04/02/2012,02/05/2011,03/25/2010,05/13/2009,04/04/2008 Influenza, IIV4 (=>6mos) MDV1Pneumococcal Poly,23-Valent (Pneumovax) 04/08/2009,04/04/2008Pneumococcal conj 13-Valent (Prevnar 13)05/14/2017Td, Preservative Free (age >= 7 Years)09/22/2006Tuberculin (PPD)10/01/2009Zoster (Zostavax-ZVL, live)06/09/2011 Family History Medical HistoryRelationNameCommentsAlcohol/DrugFatherAlcohol/DrugMotherDiabetes MotherHypertensionMotherCancerOtherCancer-breastNo Family HistoryRelationName StatusCommentsBrother 1AliveBrother 2AliveFatherDeceasedlung caMaternal GrandfatherDeceasedMaternal GrandmotherDeceasedMotherDeceasedOtherPaternal GrandfatherDeceasedPaternal GrandmotherDeceasedcaSisterAlive Social History Tobacco UseTypesPacks/DayYears UsedDateSmoking Tobacco: FormerCigarettes0.55 05/10/1979 - 05/10/1984Smokeless Tobacco: Never Tobacco Cessation:Counseling Given: Not Answered Comments:quit in Alcohol UseStandard Drinks/WeekCommentsNo0 (1 standard drink = 0.6 oz pure alcohol)Dependence former drinker. quit in PHQ-2AnswerDate RecordedPHQ-2 Yufuo026Social ConnectionsAnswerDate RecordedDo you often feel lonely or isolated from those around you?Financial Resource StrainAnswerDate RecordedDifficulty of Paying Living Lvdzgqpl004/05/2024ifficulty of Paying Living ExpensesNot on file03/14/2024Food InsecurityAnswerDate RecordedDo you worry your food will run out before you are able to buy more? Transportation NeedsAnswerDate RecordedDoes lack of transportation keep you from medical appointments?oes lack of transportation keep you from work, meetings or getting things that you need?Housing StabilityAnswerDate RecordedWhat is your housing situation today?UtilitiesAnswerDate RecordedDo you have trouble paying for utilities (for example, heat, electricity, water, phone)?regnantCommentsNoSex and Gender InformationValueDate RecordedSex Assigned at BirthNot on fileLegal SexFemale 05/23/2012 5:38 AM CSTGender IdentityNot on fileSexual OrientationNot on file Last Filed Vital Signs Vital SignReadingTime TakenCommentsBlood Pgeucqad540/8012/ 11:32 AM OFFICE SPECIALIST Ylmab82970/22/2025 11:32 AM OHXHcgeixmuswh36.4 ??C (99.3 ??F)06/21/2024 2:51 PM CSTRespiratory Dvuy2553 8:00 AM CDTOxygen Myktydywtb00%04/30/2025 11:32 AM CSTInhaled Oxygen Concentration--Koehny848.7 kg (250 lb 9.6 oz)04/30/2025 11:32 AM CXGDznsdx557.6 cm (5' 4.02)04/30/2025 11:32 AM CSTBody Mass Index42.99 04/30/2025 11:32 AM OFFICE SPECIALIST Plan of Treatment DateTypeDepartmentCare Team (Latest Contact Info)Mlmzltabulh95/07/2026 2:30 PM CSTAppointment [facility] [address] [place] [address] Bart Licea, PT [address] [place] [address] 05/29/2025 2:00 PM CSTOffice Visit [facility] [address] [place] [phone] [place] [address] [place] [address] 07/05/2025 2:20 PM CSTOffice Visit [facility] [address] [place] [address] Gee Orosco MD [address] [place] [address] 09/18/2025 2:00 PM CDTOffice Visit [facility] [address] [place] [address] Romel Mcnair MD [address] [place] [address] Health MaintenanceDue DateLast DoneCommentsHepatitis B series for 19+ (1 of 3 - Risk 3-dose series)2007Zoster (shingles) series for age 50+ (2 of 3) Medicare Wellness for age 65+Tetanus ripyblw45Depression screening for age 12+, 01/13/2018, 01/11/2018, Additional history existsPneumococcal series for age 50+ (3 of 3 - PCV20 or PCV21)/09/2017, 04/08/2009, 04/04/2008RSV vaccine for adults or (1 - 1-dose 75+ series)3COVID-19 vaccine series ( season)/, 03/02/2023, 03/13/2022, Additional history existsInfluenza Vaccine (#1)/, 02/10/2013, 04/02/2012, Additional history existsBMI (ht and wt on same day) for age 18+ , 02/14/2025, 02/28/2024, Additional history existsHepatitis C screening for age 18-12Afcudymdl45/03/2010, 12/06/2008DEXA/DXA scan for age 65+Zxofdlxxc53/08/2013 (Completed outside of [facility]) Procedures Procedure NamePriorityDate/TimeAssociated DiagnosisCommentsHOME SLEEP TEST TYPE 3 JTFLYWJDRbguzbb55/12/2025 11:59 PM OFFICE SPECIALIST NICOL (obstructive sleep apnea) AMB EPIDURAL STEROID MILPPLVLQVeelzde80/30/2025 12:00 AM CDT Lumbar facet arthropathy Lumbar radiculopathy Lumbar spondylosis HCV RNA AQWTPBvoasuv15/03/2010 1:47 PM CDT Chronic hepatitis C without mention of hepatic coma from Last 3 Months or Most Recently Relevant to Health Maintenance Results * HOME SLEEP TEST TYPE 3 PORTABLE (03/21/2025 11:59 PM OFFICE SPECIALIST) Narrative Romel Mcnair MD - 03/21/2025 11:59 PM OFFICE SPECIALIST Romel Mcnair MD 03/23/2025 8:03 AM Home Sleep Test Name: ??Valerie Martinez Location: ??[facility] Study notes: This is a single night home sleep apnea test. The study is performed in the context of a clinical suspicion for sleep apnea.. Valerie Martinez ( 1945) is studied using a T3 Device using nasal pressure transducer, thoracoabdominal respiratory impedence plethysmography belts, pulse oximetry, snore microphone and actigraphy for body position. ?? The study is scored by a RPSGT and interpreted by a Diplomate of the [place] [employer]. ??Raw summary data is scanned into this report as a separate document. ??An epoch by epoch review of the data has been performed by the interpreting physician. Scored following the AASM Manual for the Scoring of Sleep and Associated Events, V3. ?? Respiratory Event Index (LIDIA) ??Oxygen Desaturation Index (TAE) REI4% ??10.8 ??ODI4%: ??11.3 REI3% ??18.2 ??ODI3%: ??26.6 Supine LIDIA: 21.3 ??Filemon Saturation 75 % Lateral LIDIA: 2.2 ??Time Below 88% 116.3 ??minutes ?? Weight: Wt Readings from Last 1 Encounters: 03/05/25 113.9 kg (251 lb) Other data: Recording Duration: 479.9 minutes Time in Bed: ??335.3 minutes Estimated sleep efficiency [%]: 96 % [...] patient developed a significant drop in oxygen. ??It was not connected to position. - Hypoxia is noted. ??While this can be probe error, it may suggest underlying cardiopulmonary disease and clinical correlation is recommended. - Treatment for obstructive sleep apnea is recommended and CPAP would generally be considered first-line therapy for this severity of sleep apnea. ??Consider auto-titrating CPAP 5-20 cm. - Consider a [...] The LIDIA is a surrogate for AHI. ??For reimbursement and/or prior authorization purposes, it would be appropriate to list the LIDIA as an AHI when the latter is accepted, but not the former. Romel Barakatomate, Board of Sleep Medicine Recording Information Recording Date: 03/21/2025 ??Analysis Start Time: 2:11 AM Recording Tags: ?? Analysis Stop Time: 7:46 AM Device Type: T3S ??Analysis Duration (TRT): 5h 35m ?? Est. Total Sleep Time: 5h 33m Position and Analysis Time Duration Percentage Supine (in TST): 278.7 m 83.6 % Non-Supine (in TST): 54.6 m 16.4 % Upright (in TRT): 2 m 0.6 % Movement (in TST): 12.2 m 3.7 % Invalid Data (Excluded): 0 m 0 % Respiratory Indices Index ?? Total ??Supine ??Non-supine Count Apneas + Hypopneas (REI3%): 18.2 /h 21.3 /h 2.2 /h 101 Apneas + Hypopneas (REI4%) 10.8 /h ??/h ??/h ?? Apneas: 3.2 /h 3.9 /h 0 /h 18 Obstructive (OA): 3.1 /h 3.7 /h 0 /h 17 Mixed (MA): 0.2 /h 0.2 /h 0 /h 1 Central (CA): 0 /h 0 /h 0 /h 0 Hypopneas 3%: ??14.9 /h 17.4 /h 2.2 /h 83 Hypopneas 4%: 0 /h 81 /h 2 /h 0 Respiration Rate (per m): 16.3 /m 16.4 /m 15.6 /m ?? Percentage of Sleep Duration Snore: 38.6 % 33.7 % 64 % 128.8 m Flow Limitation: 0 % 0 % 0 % 0 m Average Snore Volume 70 dB Percent of time greater than 80dB: Percent of 58.8 % Oxygen Saturation (SpO2) Total Supine ?Non-supine Oxygen Desaturation Index (TAE): 26.6 /h ??29.7 /h 11 /h Average SpO2: 88.7 % ??88.4 % 90.3 % Minimum SpO2: 75 % ??75 % 88 % SpO2 Duration < 90% 56.8 % (189.3m) 65.5 % 12.5 % SpO2 Duration <= 88% 34.9 % (116.3m) 41.6 % 0.8 % Pulse in TST ?? Quality ?? Average: 91.7 bpm Oximeter: 99.4 % Maximum: 114 bpm Nasal Cannula: 100 % Minimum: 80 bpm Abdomen RIP: 100 % Duration < 40 bpm: 0 m Thorax RIP: 100 % Duration > 100 bpm: 10.3 m Authorizing ProviderResult TypeResult StatusRomel Mcnair MDSLEEP CENTERFinal Result * AMB EPIDURAL STEROID INJECTION (02/06/2025 12:00 AM CDT) Narrative Authorizing ProviderResult TypeResult StatusScchanell Orosco MDNEUROLOGY ORD Final Result * (ABNORMAL) HCV RNA RT-PCR,QNT [id number] (09/09/2009 1:47 PM CDT)ComponentValueRef RangeTest MethodAnalysis TimePerformed AtPathologist SignatureHCV RNA RT-PCR Detected(A)[facility]ITALNUMBER KEWFUPSY15,800,000IU/mLABBOTT ST. ANTHONY HOSPITALOURCEBloodABOWATONNA CLINICpecimen (Source) Anatomical Location / LateralityCollection Method / VolumeCollection Time Received TimeBlood specimen (specimen)BLOOD SPECIMEN / Rbagfiy3709/09/2009 1:47 PM CDT09/09/2009 1:45 PM CDT Narrative [facility] - 09/16/2009 1:44 PM CDT Method: Benoit Taqman HCV Test Authorizing ProviderResult TypeResult StatusAnkit Sarmiento MDSEND OUTSFinal ResultPerforming OrganizationAddressCity/State/ZIP CodePhone Number [facility] [place]IP [phone] [address] from Last 3 Months or Most Recently Relevant to Health Maintenance Insurance * Guarantor: Valerie Martinez TypeRelation to PatientDate of BirthPhone Billing AddressPersonal/FllumoMmax86/29/1946 [address] [place] [address] Advance Directives TypeDate RecordedPatient PpncajrgltjjuuNgepujffkkqFUFXR23/4/2018 2:43 PM08/04/17 Healthcare Mzwwukwhm42/8/2013 10:05 AMEMERGENCY RESUSCITATION GUIDELINES, [facility], 03/17/13 * Full Code (Latest Code Status on File) Date ActivatedDate InactivatedComments12/04/2015 10:22 AM12/17/2015 12:12 PM QuestionAnswerCommentsCode Status Discussion:* Per Existing Order * Full Code Date ActivatedDate InactivatedComments09/16/2015 2:45 PM09/26/2015 12:37 PMQuestion AnswerCommentsCode Status Discussion:* Per Existing Order * Full Code Date ActivatedDate InactivatedComments05/16/2015 2:37 PM05/24/2015 12:00 PMQuestion AnswerCommentsCode Status Discussion:* Per Existing Order * Full Code Date ActivatedDate AfpthbvseyxTmahjtil69/8/2014 1:58 PM05/11/2014 1:17 PM * Full Code Date ActivatedDate InactivatedComments01/30/2010 9:07 PM02/01/2010 1:40 PM Care Teams Team MemberRelationshipSpecialtyStart DateEnd Date Beth Carmona MD [address] [facility] [address] [place], [place] [id number] PCP - GeneralFamily Practice12/23/23 [facility] Zmnprsofg05/24/12 Bárbara Tabor, RN [address] [address] Tax Compliance Officer - MSHORegistered Nurse02/07/21 Yudith Cowart, RN [address] [facility] [address] [place], [place] [address] Tax Compliance Officer - MSHORegistered Nurse02/07/21
[2025-05-12 13:14] LABS: Vitamin B12* 307 pg/mL (243-894)
== END 2025-05-08 09:12 | disposition home or self-care (01) ==
LOC: NPINS 09:11
PROVIDERS: PCP Nurse Practitioner Gerontology; Visit Provider Family Medicine
DX: D50.9 Iron deficiency anemia, unspecified (principal)
CPT/HCPCS: 80048; 82607; 83036; 83735